=== PATIENT | male | born 1955 | race Caucasian/White ===

== ENCOUNTER 2019-07-09 07:38 | Outpatient (CLI) | payer MEDICARE, SELFPAY ==
[2019-07-09 07:54] LABS: Basophils Percent Auto 0.4 % (0.2-1.2); Eosinophils Absolute Auto 0.3 K/mm3 (0-0.3); Eosinophils Percent Auto 3.5 % (0-4.4); Hematocrit 47.5 % (42.0-52.0); Hemoglobin 15.5 g/dL (14.0-18.0); Immature Granulocyte Absolute 0.03 K/mm3 (0.00-0.031); Immature Granulocyte Percent A 0.4 % (0-0.5); Lymphocytes Absolute Auto 2.33 K/mm3 (0.9-3.2); Lymphocytes Percent Auto 27.9 % (18.3-44.2); Mean Corpuscular HGB Conc 32.6 g/dl (32-36); Mean Corpuscular Hemoglobin 28.4 pg (26-34); Mean Corpuscular Volume 87.2 fl (80-100); Mean Platelet Volume 9.7 fl (7.4-10.4); Monocytes Absolute Auto 0.7 K/mm3 (0.1-0.6); Neutrophils Percent Auto 59.8 % (45.5-73.1); Platelet Count Result 165 k/mm3 (150-375); Red Blood Count 5.45 M/mm3 (4.6-6.20); Red Cell Distribution Width 14.4 % (11.5-14.5); White Blood Count 8.4 K/mm3 (4.5-10.0)
[2019-07-09 08:03] LABS: Hemoglobin A1C 8.4 % (<5.7)
[2019-07-09 08:10] LABS: Alanine Aminotransferase 19 U/L (4-50); Albumin Level 3.9 g/dL (3.5-5.1); Alkaline Phosphatase 94 U/L (38-126); Aspartate Amino Transferase 24 U/L (17-59); Bilirubin,Total 0.6 mg/dL (0.2-1.3); Blood Urea Nitrogen 21 mg/dL (9-20); Calcium 8.3 mg/dL (8.4-10.2); Carbon Dioxide 27 mmol/L (22-30); Chloride 103 mmol/L (98-107); Cholesterol 136 mg/dL (0-200); Estimated Glomerular Filt Rate > 60; Glucose 159 mg/dL (75-110); Potassium 4.2 mmol/L (3.4-5.0); Sodium 137 mmol/L (137-145)
[2019-07-09 08:23] LABS: Creatinine Urine 54.7 mg/dL
[2019-07-09 08:24] LABS: Triglycerides 916 mg/dL (<150)
[2019-07-09 08:36] LABS: Prostate Specific Antigen 0.2 ng/mL (< OR = 4.0)
[2019-07-09 08:51] LABS: LDL Cholesterol Direct < 30 mg/dL
[2019-07-09 09:14] LABS: Microalbumin Urine Random 650.4 mg/L (0-16.7)
== END 2019-07-09 07:39 | disposition home or self-care (01) ==
LOC: ANHLAB 07:39
PROVIDERS: PCP Family Medicine; Visit Provider Family Medicine
DX: E78.2 Mixed hyperlipidemia (principal); I10 Essential (primary) hypertension; E11.9 Type 2 diabetes mellitus without complications; Z12.5 Encounter for screening for malignant neoplasm of prostate
CPT/HCPCS: 36415; 80048; 80061; 80076; 82043; 83036; 84153; 84443; 85025; G0103

== ENCOUNTER 2019-12-14 07:46 | Outpatient (CLI) | payer MEDICARE, SELFPAY ==
[2019-12-14 08:13] LABS: Basophils Absolute Auto 0.1 K/mm3 (0.0-0.1); Basophils Percent Auto 0.6 % (0.2-1.2); Eosinophils Absolute Auto 0.3 K/mm3 (0-0.3); Hematocrit 49.1 % (42.0-52.0); Immature Granulocyte Absolute 0.05 K/mm3 (0.00-0.031); Immature Granulocyte Percent A 0.5 % (0-0.5); Lymphocytes Absolute Auto 2.37 K/mm3 (0.9-3.2); Lymphocytes Percent Auto 23.3 % (18.3-44.2); Mean Corpuscular HGB Conc 34.6 g/dl (32-36); Mean Corpuscular Hemoglobin 29.9 pg (26-34); Mean Corpuscular Volume 86.4 fl (80-100); Mean Platelet Volume 10.1 fl (7.4-10.4); Monocytes Absolute Auto 0.7 K/mm3 (0.1-0.6); Neutrophils Absolute Auto 6.7 K/mm3 (1.3-6.7); Neutrophils Percent Auto 65.6 % (45.5-73.1); Platelet Count Result 184 k/mm3 (150-375); Red Blood Count 5.68 M/mm3 (4.6-6.20); Red Cell Distribution Width 13.4 % (11.5-14.5); White Blood Count 10.2 K/mm3 (4.5-10.0)
[2019-12-14 08:24] LABS: Hemoglobin A1C 8.3 % (<5.7)
[2019-12-14 08:47] LABS: Creatinine Urine 27.7 mg/dL
[2019-12-14 08:48] LABS: Alanine Aminotransferase 29 U/L (4-50); Alkaline Phosphatase 178 U/L (38-126); Anion Gap 8 mmol/L (8-16); Aspartate Amino Transferase 22 U/L (17-59); Bilirubin,Total 0.6 mg/dL (0.2-1.3); Blood Urea Nitrogen 22 mg/dL (9-20); Carbon Dioxide 31 mmol/L (22-30); Chloride 100 mmol/L (98-107); Cholesterol 194 mg/dL (0-200); Estimated Glomerular Filt Rate > 60; Glucose 298 mg/dL (75-110); Potassium 4.2 mmol/L (3.4-5.0); Sodium 139 mmol/L (137-145)
[2019-12-14 09:05] LABS: MALB Creatinine Ratio 1492.8 mg/g (0-30); Microalbumin Urine Random 413.5 mg/L (0-16.7)
[2019-12-14 11:20] LABS: Prostate Specific Antigen 0.4 ng/mL (< OR = 4.0)
[2019-12-14 11:35] LABS: LDL Cholesterol Direct < 30 mg/dL
[2019-12-14 11:44] LABS: Vitamin D 25 Hydroxy < 12.8 ng/mL
[2019-12-14 12:38] LABS: Triglycerides 1791 mg/dL (<150)
== END 2019-12-14 07:47 | disposition home or self-care (01) ==
PROVIDERS: PCP Family Medicine; Visit Provider Family Medicine
DX: E11.9 Type 2 diabetes mellitus without complications (principal); M05.79 Rheumatoid arthritis with rheumatoid factor of multiple sites without organ or systems involvement; G62.9 Polyneuropathy, unspecified; E55.9 Vitamin D deficiency, unspecified; Z12.5 Encounter for screening for malignant neoplasm of prostate; E78.2 Mixed hyperlipidemia
CPT/HCPCS: 36415; 80053; 80061; 82043; 82306; 82607; 83036; 84153; 84443; 85025; G0103

== ENCOUNTER 2020-03-30 07:50 | Outpatient (CLI) | payer MEDICARE, SELFPAY ==
[2020-03-30 08:40] LABS: Cholesterol 134 mg/dL (0-200)
[2020-03-30 08:46] LABS: Triglycerides 830 mg/dL (<150)
[2020-03-30 09:14] LABS: LDL Cholesterol Direct < 30 mg/dL
== END 2020-03-30 07:51 | disposition home or self-care (01) ==
PROVIDERS: PCP Family Medicine; Visit Provider Family Medicine
DX: E78.2 Mixed hyperlipidemia (principal)
CPT/HCPCS: 36415; 80061

== ENCOUNTER 2020-04-17 14:01 | Outpatient (CLI) | payer MEDICARE, SELFPAY ==
--- NOTE | ~2020-04-17 | US_ITS ---
EXAMINATION: US venous doppler [facility] EXAM DATE: 04/17/2020 14:44 INDICATION: Bilateral leg pain. TECHNIQUE: Multiple grayscale, color flow and Doppler images of the lower extremity deep venous syste ms bilaterally were obtained and reviewed. Comparison is made to prior examination from 07/22/2016. FINDINGS: Right side: The right common femoral, femoral and profunda veins demonstrate normal color flow, respi ratory variation, augmentation and compressibility. Compressibility, color flow confirmed within the right popliteal, posterior tibial, peroneal, and greater saphenous veins. Left side: The left common femoral, femoral and profunda veins demonstrate normal color flow, respira tory variation, augmentation and compressibility. Compressibility, color flow confirmed within the l eft popliteal, posterior tibial, peroneal, and greater saphenous veins. IMPRESSION: 1. No lower extremity deep venous thrombosis bilaterally. Reviewed, dictated and finalized at location B. ORDER SORTER
== END 2020-04-17 14:02 | disposition home or self-care (01) ==
LOC: ANHIMG 14:02
PROVIDERS: PCP Family Medicine; Visit Provider Nurse Practitioner Family
DX: M79.604 Pain in right leg (principal); M79.89 Other specified soft tissue disorders; E11.9 Type 2 diabetes mellitus without complications; Z72.0 Tobacco use; Z68.34 Body mass index [BMI] 34.0-34.9, adult
CPT/HCPCS: 93970

== ENCOUNTER 2020-06-21 09:17 | Outpatient (CLI) | payer MEDICARE, SELFPAY ==
[2020-06-21 10:02] LABS: Anion Gap 5 mmol/L (8-16); Blood Urea Nitrogen 18 mg/dL (9-20); Calcium 8.8 mg/dL (8.4-10.2); Carbon Dioxide 32 mmol/L (22-30); Chloride 103 mmol/L (98-107); Estimated Glomerular Filt Rate > 60; Glucose 228 mg/dL (75-110); Potassium 3.6 mmol/L (3.4-5.0); Sodium 140 mmol/L (137-145)
== END 2020-06-21 09:18 | disposition home or self-care (01) ==
PROVIDERS: PCP Family Medicine; Visit Provider Physician Assistant Medical
DX: M79.89 Other specified soft tissue disorders (principal)
CPT/HCPCS: 36415; 80048

== ENCOUNTER 2020-08-03 14:50 | Outpatient (CLI) | payer MEDICARE, SELFPAY ==
--- NOTE | ~2020-08-03 | XR_ITS ---
XR tibia fibula RT 2V DATE: 08/03/2020 15:19 INDICATION: Right lower leg pain. No known injury. TECHNIQUE: AP and lateral views COMPARISON: None FINDINGS: There is mild periarticular spurring of the patellofemoral joint consistent with osteoarthr itis. There is apparent loss of medial joint space height as well. Mild superior pole patellar enthes opathy at quadriceps tendon insertion. No fracture or dislocation, periosteal reaction or bone destruction of the tibia or fibula. Normal al ignment at the knee and ankle joints. Posterior calcaneal enthesopathy. IMPRESSION: Osteoarthritis at the knee joint Posterior calcaneal enthesopathy Reviewed, dictated and finalized at location B.
== END 2020-08-03 14:51 | disposition home or self-care (01) ==
PROVIDERS: PCP Family Medicine; Visit Provider Physician Assistant Medical
DX: M17.11 Unilateral primary osteoarthritis, right knee (principal); M77.31 Calcaneal spur, right foot
CPT/HCPCS: 73590

== ENCOUNTER 2020-08-25 07:47 | Outpatient (CLI) | payer MEDICARE, SELFPAY ==
--- NOTE | ~2020-08-25 | US_ITS ---
EXAMINATION: US art doppler w jaye [facility] EXAM DATE: 08/25/2020 09:01 INDICATION: Bilateral lower extremity peripheral arterial disease. TECHNIQUE: Segmental pressures and plethysmographic and Doppler waveforms of the brachial and lower e xtremity arteries were obtained. There is no prior study for comparison. FINDINGS: Right and left brachial artery pressures of 145 mm Hg and 137 mm Hg, respectively, are concordant (no rmal difference <= 30 mmHg). RIGHT LEG: The ankle-brachial index (JUDY) is 1.19 (normal >= 0.9-1). The great toe-brachial index (TBI) is 0.96 (normal >= 0.65). The lower extremity ratios, segmental pressure gradients as follows; Proximal superficial femoral artery:- Could not obtain ( mmHg). Distal superficial femoral artery: ----- 1.34 (194 mmHg). Popliteal: 1.17 (169 mmHg). Dorsalis pedis: 1.08 (156 mmHg). Posterior tibial: 1.19 (172 mmHg). (Normal gradients <= 20-30 mmHg between adjacent levels on the same leg or the same levels on the two legs). Arterial waveforms are monophasic dorsalis pedis, otherwise biphasic. LEFT LEG: The ankle-brachial index (JUDY) is 1.20 (normal >= 0.9-1). The great toe-brachial index (TBI) is 0.93 (normal >= 0.65). The lower extremity ratios, segmental pressure gradients as follows; Proximal superficial femoral artery:- Could not obtain ( mmHg). Distal superficial femoral artery: ----- 1.24 (180 mmHg). Popliteal: 1.12 (163 mmHg). Dorsalis pedis: 1.03 (149 mmHg). Posterior tibial: 1.20 (174 mmHg). (Normal gradients <= 20-30 mmHg between adjacent levels on the same leg or the same levels on the two legs). Arterial waveforms are monophasic PT, DP, biphasic above. IMPRESSION: 1. Right ankle-brachial index 1.19, normal. 2. Left ankle-brachial index 1.20, normal. 3. Segmental pressures as above. Reviewed, dictated and finalized at location A.
[2020-08-25 11:21] LABS: Prostate Specific Antigen 0.4 ng/mL (< OR = 4.0)
[2020-08-25 11:42] LABS: Creatinine Urine 49.2 mg/dL
[2020-08-25 12:50] LABS: MALB Creatinine Ratio 994.1 mg/g (0-30); Microalbumin Urine Random 489.1 mg/L (0-16.7)
== END 2020-08-25 07:48 | disposition home or self-care (01) ==
PROVIDERS: PCP Family Medicine; Visit Provider Podiatrist Foot & Ankle Surgery
DX: I73.9 Peripheral vascular disease, unspecified (principal); E11.9 Type 2 diabetes mellitus without complications; Z12.5 Encounter for screening for malignant neoplasm of prostate
CPT/HCPCS: 36415; 82043; 84153; 93923; G0103

== ENCOUNTER 2020-11-14 09:11 | Outpatient (CLI) | payer MEDICARE, SELFPAY ==
--- NOTE | 2020-11-14 11:00 | NEURO_ITS ---
Impression: # Known diabetic complains of lower extremity numbness and pain. Has bilateral pitting edema. 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 # Needle/EMG exam not done due to the edema. Nerve Conduction Studies Anti Sensory Summary Table Stim Site NR Peak (ms) P-T Amp (?V) Site1 Site2 Delta-P (ms) Dist (cm) Solo (m/s) Left Sup Fibular Anti Sensory (Ant Lat Mall) 14 cm 4.2 8.3 14 cm Ant Lat Mall 4.2 16.0 38 Right Sup Fibular Anti Sensory (Ant Lat Mall) NO RESPONSE 14 cm NR 14 cm Ant Lat Mall 16.0 Left Sural Anti Sensory (Lat Mall) NO RESPONSE Calf NR Calf Lat Mall 16.0 Right Sural Anti Sensory (Lat Mall) Calf NR Calf Lat Mall 16.0 Motor Summary Table Stim Site NR Onset (ms) O-P Amp (mV) Site1 Site2 Delta-0 (ms) Dist (cm) Solo (m/s) Left Peroneal Motor (Vastus Med) Ankle 4.8 2.0 Popit Ankle 10.4 40.0 38 Popit 15.2 1.2 Right Peroneal Motor (Vastus Med) Ankle 4.4 0.9 Popit Ankle 10.4 40.0 38 Popit 14.8 0.2 Left Tibial Motor (Abd Chisholm Brev) NO RESPONSE Ankle NR Knee NR Right Tibial Motor (Abd Chisholm Brev) NO RESPONSE Ankle NR Knee NR F Wave Studies NR F-Lat (ms) L-R F-Lat (ms) Left Peroneal (Mrkrs) (EDB) 60.04 0.78 Right Peroneal (Mrkrs) (EDB) 60.82 0.78 Left Tibial (Mrkrs) (Abd Hallucis) 61.75 Right Tibial (Mrkrs) (Abd Hallucis) DISPERSED RESPONSE NR MTDD
== END 2020-11-14 09:12 | disposition home or self-care (01) ==
PROVIDERS: PCP Family Medicine; Visit Provider Physician Assistant Medical
DX: M79.669 Pain in unspecified lower leg (principal); G62.89 Other specified polyneuropathies
CPT/HCPCS: 95910

== ENCOUNTER 2022-03-16 08:17 | Outpatient (CLI) | payer MEDICARE, MEDICAID, SELFPAY ==
[2022-03-16 08:46] LABS: Hematocrit 46.5 % (42.0-52.0); Hemoglobin 15.5 g/dL (14.0-18.0); Mean Corpuscular HGB Conc 33.3 g/dl (32-36); Mean Corpuscular Hemoglobin 28.4 pg (26-34); Mean Corpuscular Volume 85.2 fl (80-100); Mean Platelet Volume 9.5 fl (7.4-10.4); Platelet Count Result 172 k/mm3 (150-375); Red Blood Count 5.46 M/mm3 (4.6-6.20); Red Cell Distribution Width 13.9 % (11.5-14.5); White Blood Count 7.1 K/mm3 (4.5-10.0)
[2022-03-16 09:01] LABS: Alanine Aminotransferase 16 U/L (6-50); Albumin Level 3.9 g/dL (3.5-5.1); Alkaline Phosphatase 113 U/L (38-126); Amylase 59 U/L (30-110); Anion Gap 5 mmol/L (8-16); Aspartate Amino Transferase 18 U/L (17-59); Bilirubin,Total 0.9 mg/dL (0.2-1.3); Blood Urea Nitrogen 18 mg/dL (9-20); Calcium 8.7 mg/dL (8.4-10.2); Carbon Dioxide 31 mmol/L (22-30); Chloride 100 mmol/L (98-107); Cholesterol 141 mg/dL (0-200); Estimated Glomerular Filt Rate > 60; Glucose 285 mg/dL (65-110); HDL Direct 23 mg/dL; Potassium 4.2 mmol/L (3.4-5.0); Sodium 136 mmol/L (137-145)
[2022-03-16 09:26] LABS: Prostate Specific Antigen 0.5 ng/mL (< OR = 4.0)
[2022-03-16 09:59] LABS: Creatinine Urine 87.4 mg/dL
[2022-03-16 10:23] LABS: Erythrocyte Sedimentation Rate 16 mm/hr (0-20)
[2022-03-16 10:38] LABS: Hemoglobin A1C 11.1 % (<5.7)
[2022-03-16 10:49] LABS: Microalbumin Urine Random 537.5 mg/L (0-16.7)
[2022-03-16 11:03] LABS: Vitamin D 25 Hydroxy < 12.8 ng/mL
[2022-03-16 11:04] LABS: LDL Cholesterol Direct < 30 mg/dL; Triglycerides 667 mg/dL (<150)
[2022-03-20 12:29] LABS: CRP, High Sensitivity 7.5 mg/L (***)
== END 2022-03-16 08:18 | disposition home or self-care (01) ==
PROVIDERS: PCP Family Medicine; Visit Provider Family Medicine
DX: E55.9 Vitamin D deficiency, unspecified (principal); G57.93 Unspecified mononeuropathy of bilateral lower limbs; K86.1 Other chronic pancreatitis; I10 Essential (primary) hypertension; E78.2 Mixed hyperlipidemia; Z13.220 Encounter for screening for lipoid disorders; E11.65 Type 2 diabetes mellitus with hyperglycemia; Z79.4 Long term (current) use of insulin; M05.79 Rheumatoid arthritis with rheumatoid factor of multiple sites without organ or systems involvement; Z12.5 Encounter for screening for malignant neoplasm of prostate
CPT/HCPCS: 36415; 80048; 80061; 80076; 82043; 82150; 82306; 82607; 83036; 84153; 84443; 85027; 85652; 86141; G0103

== ENCOUNTER 2022-03-23 07:44 | Outpatient (CLI) | payer MEDICARE, MEDICAID, SELFPAY ==
--- NOTE | ~2022-03-23 | XR_ITS ---
XR shoulder RT min 2V 03/23/2022 08:29 Indication: Chronic right shoulder pain Procedure: These right shoulder Comparison: No prior studies for comparison. Findings: There is mild osteoarthritis of the right acromioclavicular joint with small loose bodies s uperior to the joint. There is ossification adjacent to the greater tuberosity,, consistent with calc ific tendinopathy. No fracture or traumatic malalignment. There is anatomical alignment. Impression: 1: Mild right acromioclavicular joint osteoarthritis. Reviewed, dictated and finalized at location A. RIBUTION SYSTEMS SUPERINTENDENT Impression: 1: Mild right acromioclavicular joint osteoarthritis.
--- NOTE | ~2022-03-23 | XR_ITS ---
XR knee RT min 4V 03/23/2022 08:28 Indication: Chronic right knee pain Procedure: 4 views right knee Comparison: 08/19/2016 Findings: There is mild tricompartment osteoarthritis of the right knee. No fracture, subluxation or dislocation. No significant joint effusion. No foreign bodies. Impression: 1: Mild tricompartment osteoarthritis of the right knee. Reviewed, dictated and finalized at location A. RVISOR MAINTENANCE AND CUSTODIANS Impression: 1: Mild tricompartment osteoarthritis of the right knee.
--- NOTE | ~2022-03-23 | XR_ITS ---
[id number] 03/23/2022 08:29 Indication: Right foot pain Procedure: 4 views right foot Comparison: No prior studies for comparison. Findings: There is mild osteoarthritis of the first MTP joint. No fracture, subluxation or dislocatio n. Small osteochondroma originating from the proximal aspect of the second metatarsal. Lisfranc joint intact. Impression: 1: Mild osteoarthritis of the right first MTP joint. Reviewed, dictated and finalized at location A. NO RUNNER Impression: 1: Mild osteoarthritis of the right first MTP joint.
--- NOTE | ~2022-03-23 | XR_ITS ---
XR shoulder LT min 2V 03/23/2022 08:28 Indication: Chronic shoulder pain Procedure: 4 views left shoulder Comparison: No prior studies for comparison. Findings: There is normal anatomic alignment. No fracture, subluxation or dislocation. No significant degenerative change. No soft tissue abnormality. No foreign bodies. Impression: 1: No significant bone or joint abnormality. Reviewed, dictated and finalized at location A. OGY TUTOR Impression: 1: No significant bone or joint abnormality.
--- NOTE | ~2022-03-23 | XR_ITS ---
XR knee LT min 4V 03/23/2022 08:28 Indication: Chronic left knee pain for 15 years Procedure: 4 views left knee Comparison: 08/19/2016 Findings: There is stable mild-moderate tricompartment osteoarthritis most advanced in the medial ling nt space. No fracture or traumatic malalignment. No significant joint effusion. Normal mineralization . No foreign bodies. Impression: 1: Stable mild-moderate osteoarthritis of the left knee. Reviewed, dictated and finalized at location A. OPERATOR Impression: 1: Stable mild-moderate osteoarthritis of the left knee.
--- NOTE | ~2022-03-23 | XR_ITS ---
XR chest 2V 03/23/2022 08:29 Indication: Chronic cough Procedure: 2 view chest Comparison: 12/17/2012 Findings: No focal air space disease, pulmonary edema, pleural effusion or suspected pneumothorax. Th ere is left basilar atelectasis. Heart size normal. No pneumothorax. Impression: 1: Left basilar atelectasis. Reviewed, dictated and finalized at location A. RING MACHINE OPERATOR Impression: 1: Left basilar atelectasis.
--- NOTE | ~2022-03-23 | XR_ITS ---
XR lumbar spine 6V w bending 03/23/2022 08:29 Indication: Low back pain for 15-20 years. Procedure: 7 views lumbar spine Comparison: 01/10/2005 Findings: Normal lumbar alignment. Vertebral body heights are maintained. Small ventral osteophytes a nteriorly at L2-3. Mild facet hypertrophy at L5-S1. There is disc narrowing at L5-S1. No acute fractu re or traumatic malalignment. There is atherosclerosis. Pedicles intact. There are are bilateral tsering l stones. There are prostate calcifications. There are surgical changes of ventral hernia repair. Impression: 1: Stable mild lumbar spondylosis. 2: Bilateral nephrolithiasis. Reviewed, dictated and finalized at location A. E WIRER HELPER Impression: 1: Stable mild lumbar spondylosis. 2: Bilateral nephrolithiasis.
--- NOTE | ~2022-03-23 | XR_ITS ---
[id number] 03/23/2022 08:29 Indication: Chronic left foot pain Procedure: 4 views left foot Comparison: No prior studies for comparison. Findings: There is anatomic alignment. Lisfranc joint intact. No fracture, subluxation or dislocation . Mild osteoarthritis of the first MP joint. No focal soft tissue abnormality. Small calcaneal enthes ophytes. Impression: 1: Mild osteoarthritis of the left first MTP joint. Reviewed, dictated and finalized at location A. WABLE ENERGY BROKER Impression: 1: Mild osteoarthritis of the left first MTP joint.
== END 2022-03-23 07:45 | disposition home or self-care (01) ==
LOC: ANHIMG 07:53
PROVIDERS: PCP Family Medicine; Visit Provider Family Medicine
DX: M25.512 Pain in left shoulder (principal); M05.79 Rheumatoid arthritis with rheumatoid factor of multiple sites without organ or systems involvement; M19.071 Primary osteoarthritis, right ankle and foot; M19.072 Primary osteoarthritis, left ankle and foot; M47.896 Other spondylosis, lumbar region; N20.0 Calculus of kidney; M19.011 Primary osteoarthritis, right shoulder; M17.0 Bilateral primary osteoarthritis of knee; R91.8 Other nonspecific abnormal finding of lung field
CPT/HCPCS: 71046; 72114; 73030; 73564; 73630

== ENCOUNTER 2022-07-27 05:43 | Inpatient (IN) | payer MEDICARE, SELFPAY ==
[2022-07-27] VITALS (25 sets, daily range): BP systolic 118–170; BP diastolic 59–77; PULSE 60–79; RESP 16–21; TEMP 35.7–36.4; O2SAT 94–100
--- NOTE | ~2022-07-27 | MR_ITS ---
EXAMINATION: MR MRCP wo/w con/w 3D wo ind DATE: 07/28/2022 11:22 INDICATION: Pancreatitis. Abdominal pain. TECHNIQUE: Magnetic resonance imaging (MRI) of the abdomen was performed without and with 20 mL Multi Aaron intravenous contrast. Sequences included coronal T2-weighted FS FSE, coronal T2-weighted FSE, a xial T1-weighted LAVA, coronal FS FIESTA, axial dual-echo T1-weighted SPGR, coronal lava-FLEX, sagitt al T2-weighted FSE, axial T2-weighted FSE, and axial DWI. Thick-slab T2-weighted FSE images were obta ined for magnetic resonance cholangiopancreatography (MRCP). Maximum intensity projection 3-D reconst ructions of the volumetric data were created by the technologist. Postcontrast sequences included cor onal LAVA-flex and time course of axial T1-weighted LAVA. COMPARISON: CT abdomen and pelvis 07/27/2022, abdomen ultrasound 07/27/2022 FINDINGS: ABDOMEN MRI: There is mild bilateral gynecomastia. There is diffuse hepatic steatosis. Periportal godfrey ma is noted. The gallbladder is distended and contains a few small gallstones. Gallbladder wall thick ening is noted. The spleen is normal. There is mild edema around the pancreas. The pancreas enhances throughout. The adrenal glands are normal. There are cysts in the kidneys measuring up to 2.9 cm on t he right. There is a 2.2 cm hemorrhagic cyst in right kidney. There is a 1.5 cm hemorrhagic cyst in l eft kidney. There are no dilated loops of bowel. There are no pathologically enlarged lymph nodes. Th ere is no free intraperitoneal fluid. ABDOMEN MRCP: The common duct is mildly dilated 8 mm. IMPRESSION: 1. Acute cholecystitis. 2. Mildly dilated common duct. No choledocholithiasis. 3. Mild findings of acute interstitial pancreatitis. Reviewed, dictated and finalized at location E.
--- NOTE | ~2022-07-27 | CT_ITS ---
EXAMINATION: CT abdomen pelvis w con DATE: 07/27/2022 06:59 INDICATION: Epigastric pain TECHNIQUE: Computed tomography (CT) of the abdomen and pelvis was performed without intravenous contr ast. The dose-length product was 1280.96 mGy-cm. Automated exposure control and iterative reconstruct ion technique were employed. COMPARISON: CT dated 07/24/2017. FINDINGS: Mild emphysema. Dependent atelectasis. Heart size normal. No significant pleural or pericar dial effusion. Gallbladder is enlarged with mild gallbladder wall thickening and biliary dilatation. The spleen, pancreas, adrenal glands are unremarkable. There are nonobstructing bilateral renal stone s. No ureteral stones or significant hydronephrosis. There are bilateral renal cysts. There is an int ermediate density exophytic 1.3 cm left renal mass, slightly larger than on prior study. Correlation with MRI without and with contrast recommended. There are changes of ventral abdominal wall hernia re pair. Nonobstructive bowel pattern. There is moderate atherosclerosis without aneurysm. No lymphadeno josé miguel. There is lower thoracic and lumbar spondylosis. IMPRESSION: 1. Enlarged gallbladder with gallbladder wall thickening and biliary dilatation. No obstructing stone or mass identified. Cannot exclude cholecystitis. 2: Intermediate density left renal mass measuring 1.3 cm. Correlate with MRI abdomen without and with contrast. 3: Nonobstructing bilateral nephrolithiasis. Reviewed, dictated and finalized at location A. IMPRESSION: 1. Enlarged gallbladder with gallbladder wall thickening and biliary dilatation . No obstructing stone or mass identified. Cannot exclude cholecystitis. 2: Intermediate density left renal mass measuring 1.3 cm. Correlate with MRI ab domen without and with contrast. 3: Nonobstructing bilateral nephrolithiasis.
--- NOTE | ~2022-07-27 | XR_ITS ---
EXAMINATION: XR chest 1V portable 07/27/2022 06:26 INDICATION: Midsternal chest pain PROCEDURE: AP portable chest COMPARISON: Comparison to multiple prior studies sequentially, with oldest reviewed study dated 09/29. FINDINGS: The lungs are clear. The cardiomediastinal silhouette is within normal limits. There are no pleural effusions. There is no pneumothorax suspected. IMPRESSION: 1: NO ACUTE CARDIOPULMONARY DISEASE. Reviewed, dictated and finalized at location A.
--- NOTE | ~2022-07-27 | US_ITS ---
US abdomen limited INDICATION: Possible cholecystitis. PROCEDURE: Realtime right upper abdominal ultrasound. COMPARISON: No prior studies for comparison. FINDINGS: The pancreas is normal without focal mass or pancreatic ductal dilation. Liver echotexture is increased, consistent with fatty infiltration. There is normal directional flow in the portal ve in. There is gallbladder wall thickening. No definite gallstones. Common bile duct measures 8 mm. Posit rex sonographic Scott's sign. IMPRESSION: 1: Mild gallbladder wall thickening with positive sonographic Scott's sign and biliary dilatation. N o definite gallstones. Consider acalculous cholecystitis. Reviewed, dictated and finalized at location A. IMPRESSION: 1: Mild gallbladder wall thickening with positive sonographic Scott's sign and biliary dilatation. No definite gallstones. Consider acalculous cholecystitis.
--- NOTE | ~2022-07-27 | XR_ITS ---
EXAMINATION: XR ERCP DATE: 07/29/2022 14:30 INDICATION: Choledocholithiasis. TECHNIQUE: 1 spot fluoroscopic image of the right upper quadrant was obtained during endoscopic retro grade cholangiopancreatography (ERCP). Fluoroscopy exposure time was 65 seconds. COMPARISON: MRCP 07/28/2022 FINDINGS: The endoscope is in the second portion the duodenum. There is a wire in the common duct. IMPRESSION: 1. Endoscope in the second portion of the duodenum. Please refer to the ERCP procedure note for addit ional details. Reviewed, dictated and finalized at location A. IMPRESSION: 1. Endoscope in the second portion of the duodenum. Please refer to the ERCP pr ocedure note for additional details.
--- NOTE | 2022-07-27 05:53 | ECG_ITS ---
Measurements Intervals [place] Rate: 70 P: 51 DC: 157 QRS: -9 QRSD: 102 T: 112 QT: 374 QTc: 405 Interpretive Statements SINUS RHYTHM WITH SINUS ARRHYTHMIA DELAYED PRECORDIAL R/S TRANSITION BORDERLINE ST-T WAVE ABNORMALITY- LAT/HIGH LAT LEADS ABNORMAL ECG NO PREVIOUS ECG AVAILABLE FOR COMPARISON Electronically Signed On 07-27-2022 6:15:30 CDT by Juan Antonio Hutchins D.O.
[2022-07-27 06:03] LABS: Basophils Percent Auto 0.3 % (0.2-1.2); Eosinophils Absolute Auto 0.1 K/mm3 (0-0.3); Eosinophils Percent Auto 0.9 % (0-4.4); Hematocrit 44.3 % (42.0-52.0); Hemoglobin 14.9 g/dL (14.0-18.0); Immature Granulocyte Absolute 0.05 K/mm3 (0.00-0.031); Immature Granulocyte Percent A 0.5 % (0-0.5); Lymphocytes Absolute Auto 0.96 K/mm3 (0.9-3.2); Lymphocytes Percent Auto 9.9 % (18.3-44.2); Mean Corpuscular HGB Conc 33.6 g/dl (32-36); Mean Corpuscular Hemoglobin 28.4 pg (26-34); Mean Corpuscular Volume 84.5 fl (80-100); Mean Platelet Volume 9.7 fl (7.4-10.4); Monocytes Absolute Auto 0.6 K/mm3 (0.1-0.6); Monocytes Percent Auto 6.1 % (2.6-8.5); Neutrophils Percent Auto 82.3 % (45.5-73.1); Platelet Count Result 178 k/mm3 (150-375); Red Blood Count 5.24 M/mm3 (4.6-6.20); White Blood Count 9.7 K/mm3 (4.5-10.0)
[2022-07-27 06:18] LABS: Alanine Aminotransferase 70 U/L (6-50); Albumin Level 3.9 g/dL (3.5-5.1); Alkaline Phosphatase 171 U/L (38-126); Anion Gap 7 mmol/L (8-16); Aspartate Amino Transferase 173 U/L (17-59); Bilirubin,Total 1.7 mg/dL (0.2-1.3); Blood Urea Nitrogen 21 mg/dL (9-20); Calcium 8.8 mg/dL (8.4-10.2); Carbon Dioxide 31 mmol/L (22-30); Chloride 100 mmol/L (98-107); Estimated CRCL calculation 93 ml/min; Estimated Glomerular Filt Rate > 60; Glucose 316 mg/dL (65-110); Lipase 475 U/L (23-300); Potassium 4.1 mmol/L (3.4-5.0); Sodium 138 mmol/L (137-145)
[2022-07-27 06:22] LABS: Partial Thromboplastin Time 29.7 SECONDS (22.3-36.8)
--- NOTE | 2022-07-27 06:23 | ED.GENADULT ---
HPI - General Adult General Chief complaint: Chest Pain <Gurjit Finley MD - Last Filed: 08/06/22 21:05> Stated complaint: chest pain <Gurjit Finley MD - Last Filed: 08/06/22 21:05> Time Seen by Provider: 07/27/22 05:58 <Gurjit Finley MD - Last Filed: 08/06/22 21:05> History of Present Illness HPI narrative: This is a 66-year-old male with history of COPD on 2 L home oxygen, hypertension diabetes presenting to ED with chief complaint of chest pain. the pain started at 2:00 a.m., it woke him from sleep, is an achy pain in the center of his chest that is nonradiating, 8/10 in intensity, constant. He says this feels like when he had pancreatitis in the past. There are no alleviating or exacerbating factors. It was associated with 1 episode of nausea and vomiting. Patient denies shortness of breath, diaphoresis or exertional component. no other complaints. <Gurjit Finley MD - Last Filed: 08/06/22 21:05> Related Data Home medications: Home Medications Medication Instructions Recorded Confirmed acetaminophen 325 mg tablet 650 mg PO Q6H 05/13/22 07/27/22 atorvastatin 80 mg tablet 80 mg PO DAILY 07/27/22 07/27/22 <Gurjit Finley MD - Last Filed: 08/06/22 21:05> Allergies/adverse reactions: Allergies Allergy/AdvReac Type Severity Reaction Status Date / Time No Known Allergies Allergy Verified 07/29/22 13:05 <Gurjit Finley MD - Last Filed: 08/06/22 21:05> [facility] Past Medical History Medical History: Medical History (Updated 07/30/22 @ 11:12 by Denisse Calzada MD) Adult BMI 32.0-32.9 kg/sq m Bilateral foot pain Bilateral knee pain Bilateral shoulder pain BMI 34.0-34.9,adult BMI 35.0-35.9,adult BMI greater than 30 Cough Kandice hypertension Diabetes Diabetic foot Encounter for screening for malignant neoplasm of prostate Essential (primary) hypertension Hypertension Impingement of right shoulder Leg numbness Lumbar back pain Mixed hyperlipidemia Neuropathy Neuropathy involving both lower extremities Rheumatoid arthritis Screen for colon cancer Tobacco abuse Vitamin D deficiency <Gurjit Finley MD - Last Filed: 08/06/22 21:05> Surgical History Surgical History: Surgical History (Updated 07/27/22 @ 15:03 by Gabriella Rodríguez NP) H/O cystoscopy H/O hernia repair History of left knee surgery <Gurjit Finley MD - Last Filed: 08/06/22 21:05> Family History Family History: Family History Father Diabetes mellitus, Onset Age: 60 Family history of coronary artery disease Family history of type 2 diabetes mellitus Grandparent Acute myocardial infarction, Onset Age: 90 Mother Family history of lymphoma Family history of type 2 diabetes mellitus Sibling No problems noted. <Gurjit Finley MD - Last Filed: 08/06/22 21:05> Social History Social History: Social History (Updated 07/27/22 @ 15:09 by Gabriella Rodríguez NP) Social History: the patient continues to smoke a half pack a cigarettes a day. The patient is and has 2 children. 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 The patient is currently on house arrest for the next 4 months and has an ankle bracelet to the left lower extremity. He denies any alcohol marijuana or illicit drugs. Code status full code Smoking packs per day: 0.5 Smoking cigarettes per day: 10.0 Years smoked: 40 Smoking pack-years: 20.00 Smoking status: Current every day smoker Second hand tobacco smoke exposure: No Alcohol intake: never Substance use: never Substance use type: does not use Lack of Transportation: No Lack of Food: Sometimes True Current Housing: I Have Housing Concerned About Future Housing: No Difficulty Paying Gas/Electric Bills: YES Difficulty Paying for Meds: YES Currently Unemployed: No Education: High School Diploma/GE
[2022-07-27] MEDS: SODIUM CHLORIDE 0.9% IV 1,000 ML 999 ML IV CONT (06:27)
[2022-07-27 06:29] LABS: Troponin I < 0.012 ng/mL (0.000-0.034)
[2022-07-27] MEDS: FAMOTIDINE 20 MG/2 ML VIAL IV PUSH (06:29)
[2022-07-27] MEDS: HYDROmorphone HCL INJ (*CRX) 1 MG/ML SYR 0.5 MG IV PUSH ×6 (06:29→23:46)
--- NOTE | 2022-07-27 06:48 | PC.NURSE ---
Patient taken to CT via stretcher at this time.
[2022-07-27 07:01] LABS: NT Pro B Type Natriuretic Pept 55 pg/mL (19.9-100)
[2022-07-27 09:29] LABS: Troponin I < 0.012 ng/mL (0.000-0.034)
[2022-07-27] MEDS: PIPERACILLN/TAZ 3.375GM/NS50ML 3.375 GM/50 ML BAG IVPB ×3 (09:40→21:44)
--- NOTE | 2022-07-27 10:07 | WPDGICN ---
Assessment and Plan Assessment and plan (1) Abdominal pain: Code(s): R10.9 - Unspecified abdominal pain Status: Acute Assessment and Plan: this pain came on acutely, waking him up from sleep. Based on the laboratory studies and imaging, it appears that he has acute gallstone pancreatitis. He denies drinking alcohol any time in the recent past. There has been no new change in medications. (2) Acute pancreatitis: Code(s): K85.90 - Acute pancreatitis without necrosis or infection, unspecified Status: Acute Assessment and Plan: He woke at 2:00 a.m. with acute abdominal pain that reminded him of previous episodes of pancreatitis. He has had pancreatitis at least twice in the past, And states that he was hospitalized here about five or 6 years ago. The pain is better now that he has been given morphine for pain. He had been nauseated but did not vomit. His liver function studies are somewhat elevated with bilirubin of 1.7, alkaline phosphatase 170, and AST 173. He has had at least 2 other episodes of pancreatitis going back to at least 2016. He denies drinking alcohol although imaging from 6 years ago did show some scarring, but not calcification of the pancreas. (3) Chronic pancreatitis: Qualifiers: Pancreatitis type: unspecified pancreatitis type Qualified Code(s): K86.1 - Other chronic pancreatitis Code(s): K86.1 - Other chronic pancreatitis Status: Acute Assessment and Plan: Previous imaging study showed scarring of the pancreas indicative of chronic pancreatitis. 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 (4) Splenic vein thrombosis: Code(s): I82.890 - Acute embolism and thrombosis of other specified veins Status: Acute Assessment and Plan: He has been told that the circulation defect caused by the splenic vein thrombosis was responsible for his pancreatitis. To his knowledge she has never had stones and imaging studies that I can find from 6-8 years ago did not show evidence of coli lithiasis (5) Diabetes: Qualifiers: Diabetes mellitus type: type 2 Diabetes mellitus buttermaker continuous churn insulin use: with buttermaker continuous churn use Diabetes mellitus complication status: with hyperglycemia Qualified Code(s): E11.65 - Type 2 diabetes mellitus with hyperglycemia; Z79.4 - salvage determiner (current) use of insulin Code(s): E11.9 - Type 2 diabetes mellitus without complications Status: Acute Assessment and Plan: he is insulin-dependent diabetic. He has had complications including circulatory problems in his legs. Plan He will be admitted and started an at least ice chips and water, possible clear liquid diet while we observe his course. I will obtain MRCP to help rule out choledocholithiasis. depending on results, he may need ERCP to remove common bile duct stones. I discussed this procedure with him. GI Consult Note Consult date/time: 07/27/22 10:07 HPI: Jas Ibanez is a 66 year old male Who woke at 2:00 a.m. this morning with severe epigastric pain. The pain did not radiate. He recognized this as similar to that which she has had a past with pancreatitis. He has had pancreatitis at least twice in the past hospitalized here about five or 6 years ago. The pain is better now that he has been given morphine for pain. He had been nauseated but did not vomit. His liver function studies are somewhat elevated with bilirubin of 1.7, alkaline phosphatase 170, and AST 173. Imaging studies show that he has distended gallbladder with stones. Ultrasound shows an 8 mm common bile duct. He states that when he had pancreatitis in the past that there was no known source for it. He is fairly certain that alcohol was not a factor in states he does not drink alcohol. He also did not think he has ever been found have gallstones in the past. He does recall being told that he has a pro
[2022-07-27] MEDS: SODIUM CHLORIDE 0.9% IV 1,000 ML 75 ML IV CONT ×2 (10:37→21:45)
--- NOTE | 2022-07-27 10:52 | PM.CNGS ---
Assessment and Plan Assessment and plan (1) Acalculous cholecystitis: Code(s): K81.9 - Cholecystitis, unspecified Status: Acute Assessment and Plan: imaging suggestive of acalculous cholecystitis, agree c MRCP for further assessment of biliary tree, will likely need interval cholecystectomy (2) Acute pancreatitis: Code(s): K85.90 - Acute pancreatitis without necrosis or infection, unspecified Status: Acute Assessment and Plan: unknown etiology, agree c MRCP, mgmt per GI (3) Diabetes: Qualifiers: Diabetes mellitus type: type 2 Diabetes mellitus [facility] insulin use: with [facility] use Diabetes mellitus complication status: with hyperglycemia Qualified Code(s): E11.65 - Type 2 diabetes mellitus with hyperglycemia; Z79.4 - [facility] (current) use of insulin Code(s): E11.9 - Type 2 diabetes mellitus without complications Status: Acute Assessment and Plan: cont insulin, med mgmt (4) Tobacco abuse: Code(s): Z72.0 - Tobacco use Status: Acute Assessment and Plan: not interested in cessation at this time History of Present Illness Consult details Consult date: 07/27/22 Reason for consult: abdominal pain Requesting physician: Gurjit Finley MD Narrative: The patient is a 66-year-old male presenting to the emergency department complaining of severe epigastric abdominal pain with radiation into his back. The patient reports the pain started acutely this morning waking him from sleep. The patient reports that pain is sharp, stabbing, constant. The patient reports associated nausea and bloating. The patient reports he has had previous episodes that were very similar and has been hospitalized for pancreatitis in the past. The patient reports that the etiology of his pancreatitis is unknown. Review of Systems Constitutional: Constitutional: Reports as per HPI, Reports anorexia, Denies chills, Denies fatigue, Denies fever(s), Denies increased appetite, Denies lethargy, Reports malaise, Reports poor appetite, Denies weakness, Denies weight gain and Denies weight loss Eyes: Eyes: Reports no additional eye complaints ENT: Reports system reviewed and no additional complaints, except as documented Cardiovascular: Cardiovascular: Reports no additional cardiovascular complaints Respiratory: Respiratory: Reports no additional respiratory complaints Gastrointestinal: Gastrointestinal: Reports as per HPI, Reports abdominal pain, Reports bloating, Denies change in bowel habits, Reports GI cramping, Reports early satiety, Reports heartburn, Reports nausea and Denies vomiting Genitourinary: Genitourinary: Reports no additional male genitourinary complaints Musculoskeletal: Musculoskeletal: Reports no additional musculoskeletal complaints Integumentary/Breasts: Skin/Breast: Reports system reviewed and no additional complaints, except as docu Neurologic: Reports system reviewed and no additional complaints, except as documented Psychiatric: Psychiatric: Reports no additional psychiatric complaints Endocrine: Endocrine: Reports no additional endocrine complaints Hematologic/Lymphatic: Hematologic/Lymphatic: Reports no additional hematologic/lymphatic complaints Allergic/Immunologic: Allergic/Immunologic: Reports no additional allergic/immunologic complaints [facility] Past Medical History Medical History Adult BMI 32.0-32.9 kg/sq m Bilateral foot pain Bilateral knee pain Bilateral shoulder pain BMI 34.0-34.9,adult BMI 35.0-35.9,adult BMI greater than 30 Cough Kandice hypertension Diabetes Diabetic foot Encounter for screening for malignant neoplasm of prostate Essential (primary) hypertension Hypertension Impingement of right shoulder Leg numbness Lumbar back pain Mixed hyperlipidemia Neuropathy Neuropathy involving both lower extremities Rheumatoid arthritis Screen for colon cancer Tobacco abuse
[2022-07-27 12:11] LABS: Glucose Point of Care 263 mg/dl (65-105)
--- NOTE | 2022-07-27 12:13 | PC.NURSE ---
This patient, Jas Ibanez, was admitted to [facility] Surg Room 314-01. Patient/family oriented to hospital policies and general routines including ID bracelet, bed and alarms, visiting hours, pain management, procedures, bathroom and other care routines, personal items, smoking policy, room service/diet, and visiting hours. Information on how to activate the Rapid Response Team has been discussed. Patient/Family are encouraged to report perceived risks to care and to ask questions if they do not understand what they are told or what they should do.
[2022-07-27 12:29] LABS: Troponin I < 0.012 ng/mL (0.000-0.034)
--- NOTE | 2022-07-27 12:54 | PM.IMHP ---
H&P: HPI History of Present Illness Date/Time: 07/27/22 12:54 Chief Complaint: Chest pain Narrative: this 66-year-old male patient with a history of COPD and is chronically on oxygen at 2 L per nasal cannula. He has a history of hypertension and diabetes. Patient stated that he woke up around 2:00 a.m. from his sleep with complaints of chest pain that was centralized. Nonradiating 8/10 intensity and was constant. Did not radiate to his neck are arm. Patient had an episode of nausea and vomiting. He denied any fever chills. He denied any shortness of breath diaphoresis or any exertional dyspnea. No increased swelling to his lower extremities. His blood sugar was noted to be 263. Total bilirubin 1.7. AST 173. ALT 70 alkaline phosphatase . Troponin nonreactive x3. Lipase 475. The patient was given aspirin, Dilaudid, Pepcid, IV fluids, and Zosyn. Chest x-ray was read as no acute cardiopulmonary disease. Abdominal pelvis CT was read as a following Enlarged gallbladder with gallbladder wall thickening and biliary dilatation. No obstructing stone or mass identified. Cannot exclude cholecystitis. 2: Intermediate density left renal mass measuring 1.3 cm. Correlate with MRI abdomen without and with contrast. 3: Nonobstructing bilateral nephrolithiasis. abdominal ultrasound was read as the following: Mild gallbladder wall thickening with positive sonographic Scott's sign and biliary dilatation. No definite gallstones. Consider acalculous cholecystitis. the patient is being admitted to observation status on the date of service of 07/27/2022. Review of Systems Review of Systems: All systems reviewed & are unremarkable except as noted in HPI and below Constitutional: Constitutional: Reports as per HPI and Reports no additional constitutional complaints Eyes: Eyes: Reports as per HPI and Reports no additional eye complaints ENT: Reports system reviewed and no additional complaints, except as documented and Reports Normal hearing present Cardiovascular: Cardiovascular: Reports no additional cardiovascular complaints Respiratory: Respiratory: Reports no additional respiratory complaints and Reports no additional respiratory complaints Gastrointestinal: Gastrointestinal: Reports as per HPI and Reports no additional gastrointestinal complaints Musculoskeletal: Musculoskeletal: Reports no additional musculoskeletal complaints Integumentary/Breasts: Skin/Breast: Reports system reviewed and no additional complaints, except as docu and Reports as per HPI Neurologic: Reports system reviewed and no additional complaints, except as documented, Reports as per HPI and Reports Normal hearing present Psychiatric: Psychiatric: Reports no additional psychiatric complaints and Reports as per HPI Endocrine: Endocrine: Reports no additional endocrine complaints Hematologic/Lymphatic: Hematologic/Lymphatic: Reports no additional hematologic/lymphatic complaints Allergic/Immunologic: Allergic/Immunologic: Reports no additional allergic/immunologic complaints [facility] Past Medical History Medical History Adult BMI 32.0-32.9 kg/sq m Bilateral foot pain Bilateral knee pain Bilateral shoulder pain BMI 34.0-34.9,adult BMI 35.0-35.9,adult BMI greater than 30 Cough Kandice hypertension Diabetes Diabetic foot Encounter for screening for malignant neoplasm of prostate Essential (primary) hypertension Hypertension Impingement of right shoulder Leg numbness Lumbar back pain Mixed hyperlipidemia Neuropathy Neuropathy involving both lower extremities Rheumatoid arthritis Screen for colon cancer Tobacco abuse Vitamin D deficiency Surgical History Surgical History (Updated 07/27/22 @ 15:03 by Gabriella Rodríguez NP) H/O cystoscopy H/O hernia repair History of left knee surgery Family History Family History Father Diabetes mellitus, Onset A
[2022-07-27] MEDS: GABAPENTIN 300 MG CAPSULE PO (16:49)
[2022-07-27 17:05] LABS: Glucose Point of Care 206 mg/dl (65-105)
[2022-07-27 18:23] LABS: Glucose Point of Care 187 mg/dl (65-105)
[2022-07-28 00:59] LABS: Glucose Point of Care 240 mg/dl (65-105)
[2022-07-28] MEDS: INSULIN ASPART (*BKC) 100 UNITS/ML SUB-Q ×4 (01:01→17:58)
[2022-07-28] MEDS: PIPERACILLN/TAZ 3.375GM/NS50ML 3.375 GM/50 ML BAG IVPB ×4 (03:50→21:08)
[2022-07-28] MEDS: HYDROmorphone HCL INJ (*CRX) 1 MG/ML SYR IV PUSH ×5 (03:51→22:40)
[2022-07-28 06:00] VITALS: BP 135/61; PULSE 62; RESP 20; TEMP 36.6; O2SAT 93
[2022-07-28 06:17] LABS: Glucose Point of Care 258 mg/dl (65-105)
[2022-07-28 06:56] LABS: Basophils Percent Auto 0.4 % (0.2-1.2); Eosinophils Absolute Auto 0.2 K/mm3 (0-0.3); Eosinophils Percent Auto 2.2 % (0-4.4); Hematocrit 40.8 % (42.0-52.0); Hemoglobin 13.6 g/dL (14.0-18.0); Immature Granulocyte Absolute 0.01 K/mm3 (0.00-0.031); Immature Granulocyte Percent A 0.1 % (0-0.5); Immature Platelet Fraction Pct 4.3 % (0.9-11.2); Lymphocytes Absolute Auto 1.04 K/mm3 (0.9-3.2); Lymphocytes Percent Auto 13.6 % (18.3-44.2); Mean Corpuscular HGB Conc 33.3 g/dl (32-36); Mean Corpuscular Volume 84.1 fl (80-100); Mean Platelet Volume 9.9 fl (7.4-10.4); Monocytes Absolute Auto 0.6 K/mm3 (0.1-0.6); Neutrophils Absolute Auto 5.8 K/mm3 (1.3-6.7); Neutrophils Percent Auto 75.7 % (45.5-73.1); Platelet Count Result 148 k/mm3 (150-375); Red Blood Count 4.85 M/mm3 (4.6-6.20); Red Cell Distribution Width 13.6 % (11.5-14.5); White Blood Count 7.7 K/mm3 (4.5-10.0)
[2022-07-28 07:00] LABS: Lactic Acid Reflex 1.1 mmol/L (0.7-2.0)
[2022-07-28 07:09] LABS: Alanine Aminotransferase 291 U/L (6-50); Albumin Level 3.4 g/dL (3.5-5.1); Alkaline Phosphatase 237 U/L (38-126); Anion Gap 6 mmol/L (8-16); Aspartate Amino Transferase 289 U/L (17-59); Bilirubin,Total 4.6 mg/dL (0.2-1.3); Blood Urea Nitrogen 13 mg/dL (9-20); Calcium 7.8 mg/dL (8.4-10.2); Carbon Dioxide 26 mmol/L (22-30); Chloride 101 mmol/L (98-107); Estimated CRCL calculation 106 ml/min; Estimated Glomerular Filt Rate > 60; Glucose 245 mg/dL (65-110); Lipase 111 U/L (23-300); Magnesium 1.3 mg/dL (1.6-2.3); Potassium 3.7 mmol/L (3.4-5.0); Sodium 133 mmol/L (137-145)
--- NOTE | 2022-07-28 07:53 | PC.NURSE ---
Patient stated that he spoke with his surface to air weapons officer and they stated that we can cut off ankle bracelet for MRI. This RN educated patient that removal of bracelet will be have to be performed from someone within the parole division or [facility] and not someone within our facility. This RN called [facility] r/t ankle bracelet noted and patient requiring an MRI. [facility] noted that are notifying the correct department and someone would be in touch about scheduling a time for someone to come and remove bracelet for test and replace after test is finished.
[2022-07-28 08:00] VITALS: O2SAT 93
--- NOTE | 2022-07-28 08:42 | WPDGIPROGNO ---
Progress Note: A&P Assessment and Plan (1) Abdominal pain: Code(s): R10.9 - Unspecified abdominal pain Status: Acute Assessment and Plan: this pain came on acutely, waking him up from sleep. Based on the laboratory studies and imaging, it appears that he has acute gallstone pancreatitis. He denies drinking alcohol any time in the recent past. There has been no new change in medications. (2) Acute pancreatitis: Code(s): K85.90 - Acute pancreatitis without necrosis or infection, unspecified Status: Acute Assessment and Plan: He woke at 2:00 a.m. with acute abdominal pain that reminded him of previous episodes of pancreatitis. He has had pancreatitis at least twice in the past, And states that he was hospitalized here about five or 6 years ago. The pain is better now that he has been given morphine for pain. He had been nauseated but did not vomit. His liver function studies are somewhat elevated with bilirubin of 1.7, alkaline phosphatase 170, and AST 173. He has had at least 2 other episodes of pancreatitis going back to at least 2016. He denies drinking alcohol although imaging from 6 years ago did show some scarring, but not calcification of the pancreas. 07/28/2022 today he is having more pain. Also his bilirubin has jumped to over 4. Although lipase has decreased, I am concerned about biliary sludge. I think we will hold off on MR CP and simply proceed to ERCP if it can be done with the mass in the head of the pancreas (3) Chronic pancreatitis: Qualifiers: Pancreatitis type: unspecified pancreatitis type Qualified Code(s): K86.1 - Other chronic pancreatitis Code(s): K86.1 - Other chronic pancreatitis Status: Acute Assessment and Plan: Previous imaging study showed scarring of the pancreas indicative of chronic pancreatitis. 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 (4) Splenic vein thrombosis: Code(s): I82.890 - Acute embolism and thrombosis of other specified veins Status: Acute Assessment and Plan: He has been told that the circulation defect caused by the splenic vein thrombosis was responsible for his pancreatitis. To his knowledge she has never had stones and imaging studies that I can find from 6-8 years ago did not show evidence of coli lithiasis (5) Diabetes: Qualifiers: Diabetes mellitus type: type 2 Diabetes mellitus extermination inspector insulin use: with longterm use Diabetes mellitus complication status: with hyperglycemia Qualified Code(s): E11.65 - Type 2 diabetes mellitus with hyperglycemia; Z79.4 - technician terminal and repeater (current) use of insulin Code(s): E11.9 - Type 2 diabetes mellitus without complications Status: Acute Assessment and Plan: he is insulin-dependent diabetic. He has had complications including circulatory problems in his legs. (6) Pain in the pharynx: Code(s): J39.2 - Other diseases of pharynx Status: Acute Assessment and Plan: he states that the during the night he developed a sore throat which is quite severe at the present time. Plan He will be admitted and started an at least ice chips and water, possible clear liquid diet while we observe his course. I will obtain MRCP to help rule out choledocholithiasis. depending on results, he may need ERCP to remove common bile duct stones. I discussed this procedure with him. Subjective Date/time seen: 07/28/22 08:42 Today he states that his pain is worse. He is also having a severe sore throat which came on during the night. No vomiting. He did tolerate clear liquids. I told that I have reviewed his medical records that we have on file here and also those from [facility]. It does not appear that he has had an MRCP. This might help clarify his situation. Unfortunately, I forgot that he wears an ankle bracelet. He told me that his paro
[2022-07-28 08:44] LABS: Hemoglobin A1C 9.7 % (<5.7)
[2022-07-28] MEDS: lisinopriL 20 MG TABLET PO (08:55)
[2022-07-28] MEDS: GABAPENTIN 300 MG CAPSULE PO ×3 (08:55→16:55)
[2022-07-28] MEDS: MAGNESIUM SULF 4 GM/WATER100ML 4 GM/100 ML BAG IVPB (09:03)
--- NOTE | 2022-07-28 10:20 | PC.NURSE ---
Florin Herr with [facility] at hospital to cut ankle bracelet prior to MRCP. Confirmed with [facility]. Per Elis with [facility], the Commander is aware that ankle bracelet will be cut for testing. Patient to maintain bracelet with persons until it is replaced. Florin, with [facility], will wait until after testing to replace bracelet. Patient updated and made aware.
--- NOTE | 2022-07-28 10:57 | PM.PNGS ---
Progress Note: A&P Assessment and Plan (1) Acalculous cholecystitis: Code(s): K81.9 - Cholecystitis, unspecified Status: Acute Assessment and Plan: exam improved, clears today, plan for ERCP tomorrow, cont abx for now (2) Acute pancreatitis: Qualifiers: Pancreatitis type: biliary Acute pancreatitis complication: unspecified Qualified Code(s): K85.10 - Biliary acute pancreatitis without necrosis or infection Code(s): K85.90 - Acute pancreatitis without necrosis or infection, unspecified Status: Acute Assessment and Plan: ERCP tomorrow Subjective Subjective Date/Time Seen: 07/28/22 10:57 Interval history: still c/o upper abd pain, bloating, no N/V, robert clears Review of Systems Review of Systems: All systems reviewed & are unremarkable except as noted in HPI and below Exam Const: General: cooperative, comfortable and no acute distress Resp: Auscultation: clear to auscultation bilaterally Cardio: Rate: regular rate Rhythm: regular rhythm GI: Inspection: normal to inspection GI Palp: Yes abdominal tenderness, Yes Soft to palpation, Yes Tenderness to palpation present (GI), No Guarding due to palpation present (GI) and No Rigid due to palpation Objective Data Vital Signs Vital Signs: Vital Signs - 24 hr 07/27/22 11:29 07/27/22 14:00 07/27/22 11:54 Temperature 35.7 C L Pulse Rate 63 60 Respiratory Rate 16 18 Blood Pressure 147/68 H 118/59 L Pulse Oximetry 98 100 100 Oxygen Delivery Nasal Cannula Oxygen Flow Rate 3 07/27/22 20:00 07/27/22 21:22 07/28/22 06:00 Temperature 36.4 C 36.6 C Pulse Rate 60 72 62 Respiratory Rate 18 20 20 Blood Pressure 170/75 H 135/61 Pulse Oximetry 100 99 93 Oxygen Delivery Nasal Cannula Oxygen Flow Rate 3 Intake/Output Intake/Output: Intake & Output 07/25/22 07/26/22 07/27/22 07/28/22 23:59 23:59 23:59 23:59 Intake Total 2390 175 Output Total 400 1200 Balance 1989 Meds/Results Medications: Active Medications Generic Name Dose Route Start Last Admin Trade Name Freq PRN Reason Stop Dose Admin Albuterol 2 puff 07/27/22 15:45 Albuterol Sulfate (*Sp) Aerosol 1 Puff INHALATION Q6HRT PRN Shortness Of Breath Dextrose 12.5 gm 07/27/22 15:04 Dextrose 50% 25 Gm/50 Ml Syringe IV PUSH PRN PRN Hypoglycemia Protocol Gabapentin 300 mg 07/27/22 17:00 07/28/22 08:55 Gabapentin 300 Mg Capsule PO 300 mg TID AMBER Administration Glucagon 1 mg 07/27/22 15:04 Glucagon For Inj 1 Mg Vial IM PRN PRN Hypoglycemia Protocol Glucose 15 gm 07/27/22 15:04 Glucose Oral Gel 15 Gm Of Glucse In 37.5 Gm Tube PO PRN PRN Hypoglycemia Protocol Hydralazine HCl 10 mg 07/27/22 15:05 Hydralazine Hcl 20 Mg/Ml Vial IV PUSH Q8H PRN Blood Pressure - High Hydromorphone HCl 1 mg 07/28/22 00:54 07/28/22 08:50 Hydromorphone Hcl Inj (*Crx) 1 Mg/Ml Syr IV PUSH 1 mg Q4H PRN Administration Pain Rated 7-10 Sodium Chloride 1,000 mls @ 75 mls/hr 07/27/22 09:25 07/27/22 21:45 Normal Saline Iv IV CONT 75 mls/hr .[id number] AMBER Administration Dextrose 1,000 mls @ 100 mls/hr 07/27/22 15:04 Dextrose 5% 1,000 Ml IVPB PRN PRN Hypoglycemia Protocol Piperacillin/Tazobactam/Dextrose 3.375 gm in 50 mls @ 100 mls/hr 07/27/22 16:00 07/28/22 10:08 Zosyn 3.375 Gm/Ns 50 Ml IVPB 100 mls/hr Q6H AMBER Administration Insulin Aspart 2 - 5 units 07/27/22 18:00 07/28/22 06:16 Insulin Aspart (*Bkc) 100 Units/Ml SUB-Q 3 units Q6HR AMBER Administration Protocol Lisinopril 20 mg 07/28/22 09:00 07/28/22 08:55 Lisinopril 20 Mg Tablet PO 20 mg QAM AMBER Administration Nicotine 1 patch 07/27/22 15:15 07/28/22 08:57 Nicotine (*Pbkc) 14 Mg Patch TRANSDERM Not Given QAM AMBER Ondansetron HCl 4 mg 07/27/22 09:24 Ondansetron Inj 4 Mg/2 Ml Vial IV PUSH
--- NOTE | 2022-07-28 11:30 | P.PNIM_ITS ---
Progress Note: A&P Assessment and Plan (1) Acalculous cholecystitis: Code(s): K81.9 - Cholecystitis, unspecified Status: Acute Assessment and Plan: * CT of the abd/pel showed acalculous cholecystitis * MRCP pending read * Ultrasound of the RUQ showed acute cholecystitis * Clear liquids for now * AST/ALT elevated at 289/291 Alk Phos 237, T bili 4.6 * Continue IV fluids for now * General surgery and GI consulted * ERCP in the am (2) Acute pancreatitis: Qualifiers: Acute pancreatitis complication: unspecified Pancreatitis type: biliary Qualified Code(s): K85.10 - Biliary acute pancreatitis without necrosis or infection Code(s): K85.90 - Acute pancreatitis without necrosis or infection, unspecified Status: Acute Assessment and Plan: * Lipase was 475, currently at 111 * Clear liquids added * Continue fluids for now * Trend lipase * Pain medication (3) Diabetes: Qualifiers: Diabetes mellitus complication status: with hyperglycemia Diabetes mellitus parts counterman insulin use: with jail use Diabetes mellitus type: type 2 Qualified Code(s): E11.65 - Type 2 diabetes mellitus with hyperglycemia; Z79.4 - termite control representative (current) use of insulin Code(s): E11.9 - Type 2 diabetes mellitus without complications Status: Acute Assessment and Plan: * Current 245 * Accu-Cheks every 6 hours * sliding scale insulin * hypoglycemic protocol * A1c 9.7 * Hold metformin (4) Tobacco abuse: Code(s): Z72.0 - Tobacco use Status: Acute Assessment and Plan: * Current everyday smoker * Add patch and gum PRN * Smoking cessation education given (5) Neuropathy: Code(s): G62.9 - Polyneuropathy, unspecified Status: Acute Assessment and Plan: * Gabapentin 300mg PO TID on hold * NPO for now * restart when appropriate (6) Mixed hyperlipidemia: Code(s): E78.2 - Mixed hyperlipidemia Status: Acute Assessment and Plan: * Atorvastatin continued at this time (7) Essential (primary) hypertension: Code(s): I10 - Essential (primary) hypertension Status: Acute Assessment and Plan: * P.r.n. hydralazine. * Continue lisinopril * BP is 135/61 * Stable * continue to trend Time Spent With Patient Time: 48 minutes Time with patient: Greater than 35 minutes Subjective Date/time seen: 07/28/22 1130 Interval history: 07/28/221129 Patient was sitting up in bed eating his lunch. Patient states that he is feeling okay right now. He is still having some epigastric pain which is the same pain he came in for. He denies any current chest pain, shortness a breath, nausea, vomiting, diarrhea constipation. He is able to tolerate his food. ERCP planned for tomorrow. 07/27/22? 12:54 ?this 66-year-old male patient with a history of COPD and is chronically on oxygen at 2 L per nasal cannula.? He has a history of hypertension and diabetes.? Patient stated that he woke up around 2:00 a.m. from his sleep with complaints of chest pain that was centralized.? Nonradiating 8/10 intensity and was constant.? Did not radiate to his neck are arm.? Patient had an episode of nausea and vomiting.? He denied any fever chills.? He denied any shortness of breath diaphoresis or any exe
--- NOTE | 2022-07-28 11:30 | PM.IMPN ---
Progress Note: A&P Assessment and Plan (1) Acalculous cholecystitis: Code(s): K81.9 - Cholecystitis, unspecified Status: Acute Assessment and Plan: CT of the abd/pel showed acalculous cholecystitis MRCP pending read Ultrasound of the RUQ showed acute cholecystitis Clear liquids for now AST/ALT elevated at 289/291 Alk Phos 237, T bili 4.6 Continue IV fluids for now General surgery and GI consulted ERCP in the am (2) Acute pancreatitis: Qualifiers: Acute pancreatitis complication: unspecified Pancreatitis type: biliary Qualified Code(s): K85.10 - Biliary acute pancreatitis without necrosis or infection Code(s): K85.90 - Acute pancreatitis without necrosis or infection, unspecified Status: Acute Assessment and Plan: Lipase was 475, currently at 111 Clear liquids added Continue fluids for now Trend lipase Pain medication (3) Diabetes: Qualifiers: Diabetes mellitus complication status: with hyperglycemia Diabetes mellitus fpc insulin use: with fpc use Diabetes mellitus type: type 2 Qualified Code(s): E11.65 - Type 2 diabetes mellitus with hyperglycemia; Z79.4 - alf (current) use of insulin Code(s): E11.9 - Type 2 diabetes mellitus without complications Status: Acute Assessment and Plan: Current 245 Accu-Cheks every 6 hours sliding scale insulin hypoglycemic protocol A1c 9.7 Hold metformin (4) Tobacco abuse: Code(s): Z72.0 - Tobacco use Status: Acute Assessment and Plan: Current everyday smoker Add patch and gum PRN Smoking cessation education given (5) Neuropathy: Code(s): G62.9 - Polyneuropathy, unspecified Status: Acute Assessment and Plan: Gabapentin 300mg PO TID on hold NPO for now restart when appropriate (6) Mixed hyperlipidemia: Code(s): E78.2 - Mixed hyperlipidemia Status: Acute Assessment and Plan: Atorvastatin continued at this time (7) Essential (primary) hypertension: Code(s): I10 - Essential (primary) hypertension Status: Acute Assessment and Plan: P.r.n. hydralazine. Continue lisinopril BP is 135/61 Stable continue to trend Time Spent With Patient Time: 48 minutes Time with patient: Greater than 35 minutes Subjective Date/time seen: 07/28/22 1130 Interval history: 07/28/221129 Patient was sitting up in bed eating his lunch. Patient states that he is feeling okay right now. He is still having some epigastric pain which is the same pain he came in for. He denies any current chest pain, shortness a breath, nausea, vomiting, diarrhea constipation. He is able to tolerate his food. ERCP planned for tomorrow. 07/27/22? 12:54 ?this 66-year-old male patient with a history of COPD and is chronically on oxygen at 2 L per nasal cannula.? He has a history of hypertension and diabetes.? Patient stated that he woke up around 2:00 a.m. from his sleep with complaints of chest pain that was centralized.? Nonradiating 8/10 intensity and was constant.? Did not radiate to his neck are arm.? Patient had an episode of nausea and vomiting.? He denied any fever chills.? He denied any shortness of breath diaphoresis or any exertional dyspnea.? No increased swelling to his lower extremities.? His blood sugar was noted to be 263.? Total bilirubin 1.7.? AST 173.? ALT 70 alkaline phosphatase .? Troponin nonreactive x3.? Lipase 475.? The patient was given aspirin, Dilaudid, Pepcid, IV fluids,? and Zosyn.? Chest x-ray was read as no acute cardiopulmonary disease.? Abdominal pelvis CT was read as a following?Enlarged gallbladder with gallbladder wall thickening and biliary dilatation. No obstructing stone or mass identified. Cannot exclude cholecystitis. 2: Intermediate density left renal mass measuring 1.3 cm. Correlat
--- NOTE | 2022-07-28 11:34 | PC.NURSE ---
Ankle monitor replaced per Florin, with HDTI
[2022-07-28 11:55] LABS: Glucose Point of Care 235 mg/dl (65-105)
[2022-07-28] MEDS: BENZOCAINE/MENTHOL (*BKC) 18 EA LOZENGE 1 LOZENGE PO ×2 (12:27→16:55)
[2022-07-28 13:33] VITALS: BP 142/62; PULSE 66; RESP 20; TEMP 36.3; O2SAT 95
[2022-07-28] MEDS: SODIUM CHLORIDE 0.9% IV 1,000 ML 75 ML IV CONT (15:00)
[2022-07-28 17:42] LABS: Glucose Point of Care 362 mg/dl (65-105)
[2022-07-28 20:00] VITALS: PULSE 72; RESP 18; O2SAT 93
[2022-07-28] MEDS: PANTOPRAZOLE SODIUM IV 40 MG VIAL IV PUSH (21:08)
[2022-07-28 22:00] VITALS: BP 162/63; PULSE 72; RESP 18; TEMP 36.4; O2SAT 93
[2022-07-29] VITALS (11 sets, daily range): BP systolic 135–153; BP diastolic 45–82; PULSE 58–81; RESP 16–27; TEMP 36.1–36.5; O2SAT 93–98
[2022-07-29 00:12] LABS: Glucose Point of Care 356 mg/dl (65-105)
[2022-07-29] MEDS: INSULIN ASPART (*BKC) 100 UNITS/ML SUB-Q ×4 (00:16→21:22)
[2022-07-29] MEDS: PIPERACILLN/TAZ 3.375GM/NS50ML 3.375 GM/50 ML BAG IVPB ×4 (04:04→20:27)
[2022-07-29] MEDS: SODIUM CHLORIDE 0.9% IV 1,000 ML 75 ML IV CONT (04:06)
[2022-07-29 06:35] LABS: Glucose Point of Care 267 mg/dl (65-105)
[2022-07-29 06:49] LABS: Basophils Percent Auto 0.2 % (0.2-1.2); Eosinophils Absolute Auto 0.1 K/mm3 (0-0.3); Eosinophils Percent Auto 1.3 % (0-4.4); Hematocrit 42.4 % (42.0-52.0); Hemoglobin 14.6 g/dL (14.0-18.0); Immature Granulocyte Absolute 0.04 K/mm3 (0.00-0.031); Immature Granulocyte Percent A 0.5 % (0-0.5); Lymphocytes Absolute Auto 1.07 K/mm3 (0.9-3.2); Lymphocytes Percent Auto 12.3 % (18.3-44.2); Mean Corpuscular HGB Conc 34.4 g/dl (32-36); Mean Corpuscular Hemoglobin 28.7 pg (26-34); Mean Corpuscular Volume 83.3 fl (80-100); Mean Platelet Volume 9.6 fl (7.4-10.4); Monocytes Absolute Auto 0.7 K/mm3 (0.1-0.6); Neutrophils Absolute Auto 6.8 K/mm3 (1.3-6.7); Neutrophils Percent Auto 77.7 % (45.5-73.1); Platelet Count Result 150 k/mm3 (150-375); Red Blood Count 5.09 M/mm3 (4.6-6.20); Red Cell Distribution Width 13.6 % (11.5-14.5); White Blood Count 8.7 K/mm3 (4.5-10.0)
[2022-07-29 07:06] LABS: Alanine Aminotransferase 205 U/L (6-50); Albumin Level 3.7 g/dL (3.5-5.1); Alkaline Phosphatase 279 U/L (38-126); Anion Gap 5 mmol/L (8-16); Aspartate Amino Transferase 84 U/L (17-59); Bilirubin,Total 2.4 mg/dL (0.2-1.3); Blood Urea Nitrogen 9 mg/dL (9-20); Calcium 7.8 mg/dL (8.4-10.2); Carbon Dioxide 27 mmol/L (22-30); Chloride 102 mmol/L (98-107); Estimated CRCL calculation 122 ml/min; Estimated Glomerular Filt Rate > 60; Glucose 281 mg/dL (65-110); Magnesium 1.8 mg/dL (1.6-2.3); Potassium 3.7 mmol/L (3.4-5.0); Sodium 134 mmol/L (137-145)
[2022-07-29] MEDS: GABAPENTIN 300 MG CAPSULE PO ×2 (08:47→17:29)
[2022-07-29] MEDS: PANTOPRAZOLE SODIUM IV 40 MG VIAL IV PUSH ×2 (08:49→20:27)
[2022-07-29] MEDS: lisinopriL 20 MG TABLET PO (08:49)
[2022-07-29] MEDS: ATORVASTATIN 40 MG TABLET 80 MG PO (08:49)
--- NOTE | 2022-07-29 09:45 | PM.IMPN ---
Progress Note: A&P Assessment and Plan (1) Acalculous cholecystitis: Code(s): K81.9 - Cholecystitis, unspecified Status: Acute Assessment and Plan: CT of the abd/pel showed acalculous cholecystitis MRCP Acute cholecystitis, mildly dilated common bile duct, mild findings acute interstitial pancreatitis Ultrasound of the RUQ showed acute cholecystitis NPO for ERCP AST/ALT elevated at 289/291 Alk Phos 237, T bili 4.6 Currently AST/ALT 84/205, t. 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: with computer terminal operator use Diabetes mellitus type: type 2 Qualified Code(s): E11.65 - Type 2 diabetes mellitus with hyperglycemia; Z79.4 - termite technician (current) use of insulin Code(s): E11.9 - Type 2 diabetes mellitus without complications Status: Acute Assessment and Plan: Current 281 Accu-Cheks every 6 hours sliding scale insulin, increase sliding scale hypoglycemic protocol A1c 9.7 Hold metformin (4) Tobacco abuse: Code(s): Z72.0 - Tobacco use Status: Acute Assessment and Plan: Current everyday smoker Add patch and gum PRN Smoking cessation education given (5) Neuropathy: Code(s): G62.9 - Polyneuropathy, unspecified Status: Acute Assessment and Plan: Gabapentin 300mg PO TID on hold NPO for now restart when appropriate (6) Mixed hyperlipidemia: Code(s): E78.2 - Mixed hyperlipidemia Status: Acute Assessment and Plan: Atorvastatin continued at this time (7) Essential (primary) hypertension: Code(s): I10 - Essential (primary) hypertension Status: Acute Assessment and Plan: P.r.n. hydralazine. Continue lisinopril BP is 145/45 Stable continue to trend (8) Transaminitis: Code(s): R74.01 - Elevation of levels of liver transaminase levels Status: Acute Assessment and Plan: Elevated upon admission Most likely related to the pancreatitis Continue to trend Time Spent With Patient Time: 48 minutes Time with patient: Greater than 35 minutes Subjective Date/time seen: 07/29/22944 Interval history: 07/29/22944 Patient is currently lying in bed resting. He stated that his pain is lot better today. He denies any current chest pain, shortness a breath, nausea, vomiting, diarrhea or constipation. ERCP is scheduled for today. At this time patient is resting comfortably. 07/28/22 1130 Patient was sitting up in bed eating his lunch. Patient states that he is feeling okay right now. He is still having some epigastric pain which is the same pain he came in for. He denies any current chest pain, shortness a breath, nausea, vomiting, diarrhea constipation. He is able to tolerate his food. ERCP planned for tomorrow. 07/27/22? 12:54 ?this 66-year-old male patient with a history of COPD and is chronically on oxygen at 2 L per nasal cannula.? He has a history of hypertension and diabetes.? Patient stated that he woke up around 2:00 a.m. from his sleep with complaints of chest pain that was centralized.? Nonradiating 8/10 intensity and was constant.? Did not radiate to his neck are arm.? Patient had an episode of nausea and vomiting.? He denied any fever ch
--- NOTE | 2022-07-29 09:45 | P.PNIM_ITS ---
Progress Note: A&P Assessment and Plan (1) Acalculous cholecystitis: Code(s): K81.9 - Cholecystitis, unspecified Status: Acute Assessment and Plan: * CT of the abd/pel showed acalculous cholecystitis * MRCP Acute cholecystitis, mildly dilated common bile duct, mild findings acute interstitial pancreatitis * Ultrasound of the RUQ showed acute cholecystitis * NPO for ERCP * AST/ALT elevated at 289/291 Alk Phos 237, T bili 4.6 * Currently AST/ALT 84/205, t. 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 insulin 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: with fdc use Diabetes mellitus type: type 2 Qualified Code(s): E11.65 - Type 2 diabetes mellitus with hyperglycemia; Z79.4 - senior care (current) use of insulin Code(s): E11.9 - Type 2 diabetes mellitus without complications Status: Acute Assessment and Plan: * Current 281 * Accu-Cheks every 6 hours * sliding scale insulin, increase sliding scale * hypoglycemic protocol * A1c 9.7 * Hold metformin (4) Tobacco abuse: Code(s): Z72.0 - Tobacco use Status: Acute Assessment and Plan: * Current everyday smoker * Add patch and gum PRN * Smoking cessation education given (5) Neuropathy: Code(s): G62.9 - Polyneuropathy, unspecified Status: Acute Assessment and Plan: * Gabapentin 300mg PO TID on hold * NPO for now * restart when appropriate (6) Mixed hyperlipidemia: Code(s): E78.2 - Mixed hyperlipidemia Status: Acute Assessment and Plan: * Atorvastatin continued at this time (7) Essential (primary) hypertension: Code(s): I10 - Essential (primary) hypertension Status: Acute Assessment and Plan: * P.r.n. hydralazine. * Continue lisinopril * BP is 145/45 * Stable * continue to trend (8) Transaminitis: Code(s): R74.01 - Elevation of levels of liver transaminase levels Status: Acute Assessment and Plan: * Elevated upon admission * Most likely related to the pancreatitis * Continue to trend Time Spent With Patient Time: 48 minutes Time with patient: Greater than 35 minutes Subjective Date/time seen: 07/29/22944 Interval history: 07/29/22944 Patient is currently lying in bed resting. He stated that his pain is lot better today. He denies any current chest pain, shortness a breath, nausea, vomiting, diarrhea or constipation. ERCP is scheduled for today. At this time patient is resting comfortably. 07/28/22 1130 Patient was sitting up in bed eating his lunch. Patient states that he is feeling okay right now. He is still having some epigastric pain wh
[2022-07-29 12:27] LABS: Glucose Point of Care 238 mg/dl (65-105)
--- NOTE | 2022-07-29 13:03 | WPDANESEPPF ---
Anes - Initial Pre Proc Eval Procedure: Operation Date: 07/29/22 14:30 Proposed Procedures p Endoscopic Retro Cholangiopancreatogram - Lance Baez MD Date/Time: 07/29/22 13:03 Surgeon: Wendy López MD Pre Op Diagnosis: abdominal pain,acalculus cholecystitis Patient Data Age: 66 Gender: M Height: 1.75 m Weight: 100 kg Last Vital Signs Temp 96.9 F L 07/29/22 06:00 Pulse 66 07/29/22 06:00 Resp 16 07/29/22 06:00 BP 145/45 H 07/29/22 06:00 Pulse Ox 95 07/29/22 06:00 O2 Del Method Room Air 07/29/22 08:00 O2 Flow Rate 3 07/27/22 20:00 Allergies Allergy/AdvReac Type Severity Reaction Status Date / Time No Known Allergies Allergy Verified 07/29/22 13:05 Home Medications Medication Instructions Recorded Confirmed Type blood sugar diagnostic (OneTouch #100 ea 01/21/22 07/27/22 Rx Ultra Test strips) blood-glucose meter (OneTouch #1 ea 01/21/22 07/27/22 Rx Ultra2 Meter kit) lancets ([employer] UltraSoft #100 ea 01/21/22 07/27/22 Rx Lancets) aspirin 81 mg tablet,delayed 81 mg PO DAILY #30 tabs 02/12/22 07/27/22 Rx release metformin 1,000 mg tablet 1,000 mg PO BID #180 tabs 02/12/22 07/27/22 Rx insulin lispro protamine-lispro See Rx Instructions subcut 04/15/22 07/27/22 Rx 100 unit/mL (75-25) subcutaneous .COMPLEX #15 mL pen (Humalog Mix 75-25 KwikPen) acetaminophen 325 mg tablet 650 mg PO Q6H 05/13/22 07/27/22 History lisinopril 20 mg tablet 20 mg PO QAM #90 tabs 05/13/22 07/27/22 Rx tramadol 50 mg tablet 100 mg PO Q8H PRN pain #180 tabs 06/12/22 07/27/22 Rx gabapentin 300 mg capsule 300 mg PO TID #90 caps 06/24/22 07/27/22 Rx atorvastatin 80 mg tablet 80 mg PO DAILY 07/27/22 07/27/22 History Laboratory Tests 07/28/22 07/29/22 07/29/22 17:39 00:09 05:10 WBC RBC Hgb Hct MCV MCH MCHC RDW Plt Count MPV Immature Gran % (Auto) Neut % (Auto) Lymph % (Auto) [place] % (Auto) Eos % (Auto) Baso % (Auto) Lymph # (Auto) [place] # (Auto) Eos # (Auto) Baso # (Auto) Abs Immat Gran (auto) Absolute Neuts (auto) Absolute Nucleated RBC Nucleated RBC % Sodium Potassium Chloride Carbon Dioxide Anion Gap BUN Creatinine Estim Creat Clear Calc Estimated GFR Glucose POC Capillary Glucose 362 H mg/dl 356 H mg/dl 267 H mg/dl (65-105) (65-105) (65-105) Calcium Magnesium Total Bilirubin AST ALT Alkaline Phosphatase Total Protein Albumin 07/29/22 07/29/22 06:39 12:25 WBC 8.7 K/mm3 (4.5-10.0) RBC 5.09 M/mm3 (4.6-6.20) Hgb 14.6 g/dL (14.0-18.0) Hct 42.4 % (42.0-52.0) MCV 83.3 fl (80-100) MCH 28.7 pg (26-34) MCHC 34.4 g/dl (32-36) RDW 13.6 % (11.5-14.5) Plt Count 150 k/mm3 (150-375) MPV 9.6 fl (7.4-10.4) Immature Gran % (Auto) 0.5 % (0-0.5) Neut % (Auto) 77.7 H % (45.5-73.1) Lymph % (Auto) 12.3 L % (18.3-44.2) [place] % (Auto) 8.0 % (2.6-8.5) Eos % (Auto) 1.3 % (0-4.4) Baso % (Auto) 0.2 % (0.2-1.2) Lymph # (Auto) 1.07 K/mm3 (0.9-3.2) [place] # (Auto) 0.7 H K/mm3 (0.1-0.6) Eos # (Auto) 0.1 K/mm3 (0-0.3) Baso # (Auto) 0.0 K/mm3 (0.0-0.1) Abs Immat Gran (auto) 0.04 H K/mm3 (0.00-0.031) Absolute Neuts (auto) 6.8 H K/mm3 (1.3-6.7) Absolute Nucleated RBC 0.0 K/mm3 (0.0-0.012) Nucleated RBC % 0.0 % (0.0-0.2) Sodium 134 L mmol/L (137-145) Bhumi
[2022-07-29] MEDS: LACTATED RINGERS 1,000 ML 150 ML IV CONT (13:13)
[2022-07-29] MEDS: INDOMETHACIN 50 MG SUPP.RECT 100 MG RECTAL (14:03)
[2022-07-29] MEDS: GLUCAGON FOR INJ 1 MG VIAL IM (14:11)
[2022-07-29 14:52] LABS: Glucose Point of Care 312 mg/dl (65-105)
--- NOTE | 2022-07-29 14:52 | SUR.PHASEII ---
anesthesia notified of pt blood sugar. no new orders.
[2022-07-29 18:20] LABS: Glucose Point of Care 357 mg/dl (65-105)
[2022-07-29 21:01] LABS: Glucose Point of Care 301 mg/dl (65-105)
[2022-07-30] MEDS: PIPERACILLN/TAZ 3.375GM/NS50ML 3.375 GM/50 ML BAG IVPB ×2 (03:28→08:59)
[2022-07-30] MEDS: SODIUM CHLORIDE 0.9% IV 1,000 ML 75 ML IV CONT (03:29)
[2022-07-30 05:57] VITALS: BP 144/67; PULSE 57; RESP 16; TEMP 36.7; O2SAT 95
[2022-07-30 06:16] LABS: Basophils Percent Auto 0.6 % (0.2-1.2); Eosinophils Absolute Auto 0.1 K/mm3 (0-0.3); Eosinophils Percent Auto 1.7 % (0-4.4); Hematocrit 41.5 % (42.0-52.0); Hemoglobin 13.6 g/dL (14.0-18.0); Immature Granulocyte Absolute 0.02 K/mm3 (0.00-0.031); Immature Granulocyte Percent A 0.4 % (0-0.5); Lymphocytes Absolute Auto 0.87 K/mm3 (0.9-3.2); Lymphocytes Percent Auto 16.1 % (18.3-44.2); Mean Corpuscular HGB Conc 32.8 g/dl (32-36); Mean Corpuscular Hemoglobin 27.9 pg (26-34); Mean Corpuscular Volume 85.2 fl (80-100); Monocytes Absolute Auto 0.5 K/mm3 (0.1-0.6); Monocytes Percent Auto 8.3 % (2.6-8.5); Neutrophils Percent Auto 72.9 % (45.5-73.1); Platelet Count Result 156 k/mm3 (150-375); Red Blood Count 4.87 M/mm3 (4.6-6.20); Red Cell Distribution Width 13.9 % (11.5-14.5); White Blood Count 5.4 K/mm3 (4.5-10.0)
[2022-07-30 06:29] LABS: Alanine Aminotransferase 184 U/L (6-50); Albumin Level 3.5 g/dL (3.5-5.1); Alkaline Phosphatase 330 U/L (38-126); Anion Gap 7 mmol/L (8-16); Aspartate Amino Transferase 144 U/L (17-59); Bilirubin,Total 5.4 mg/dL (0.2-1.3); Blood Urea Nitrogen 8 mg/dL (9-20); Calcium 7.9 mg/dL (8.4-10.2); Carbon Dioxide 26 mmol/L (22-30); Chloride 106 mmol/L (98-107); Estimated CRCL calculation 106 ml/min; Estimated Glomerular Filt Rate > 60; Glucose 286 mg/dL (65-110); Magnesium 1.8 mg/dL (1.6-2.3); Potassium 3.8 mmol/L (3.4-5.0); Sodium 139 mmol/L (137-145)
--- NOTE | 2022-07-30 07:19 | WPDGIPROGNO ---
Progress Note: A&P Assessment and Plan (1) Abdominal pain: Code(s): R10.9 - Unspecified abdominal pain Status: Acute Assessment and Plan: this pain came on acutely, waking him up from sleep. Based on the laboratory studies and imaging, it appears that he has acute gallstone pancreatitis. He denies drinking alcohol any time in the recent past. There has been no new change in medications. 07/30/2022 today he denies any pain. He has only minimal tenderness on palpation. (2) Acute pancreatitis: Qualifiers: Pancreatitis type: biliary Acute pancreatitis complication: unspecified Qualified Code(s): K85.10 - Biliary acute pancreatitis without necrosis or infection Code(s): K85.90 - Acute pancreatitis without necrosis or infection, unspecified Status: Acute Assessment and Plan: He woke at 2:00 a.m. with acute abdominal pain that reminded him of previous episodes of pancreatitis. He has had pancreatitis at least twice in the past, And states that he was hospitalized here about five or 6 years ago. The pain is better now that he has been given morphine for pain. He had been nauseated but did not vomit. His liver function studies are somewhat elevated with bilirubin of 1.7, alkaline phosphatase 170, and AST 173. He has had at least 2 other episodes of pancreatitis going back to at least 2016. He denies drinking alcohol although imaging from 6 years ago did show some scarring, but not calcification of the pancreas. 07/28/2022 today he is having more pain. Also his bilirubin has jumped to over 4. Although lipase has decreased, I am concerned about biliary sludge. I think we will hold off on MR CP and simply proceed to ERCP if it can be done with the mass in the head of the pancreas both small stones were removed via ERCP. His last lipase was normal. I told him that because pancreatitis is likely to recur, and that once a person has pancreatitis it does not take much for to happen again, that he needs to avoid alcohol and be on a low-fat diet for 6 weeks. He states he does not drink alcohol. (3) Chronic pancreatitis: Qualifiers: Pancreatitis type: unspecified pancreatitis type Qualified Code(s): K86.1 - Other chronic pancreatitis Code(s): K86.1 - Other chronic pancreatitis Status: Acute Assessment and Plan: Previous imaging study showed scarring of the pancreas indicative of chronic pancreatitis. 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 07/30/22 rather than chronic pancreatitis, I think he was having recurrent acute attacks due to biliary calculi. (4) Splenic vein thrombosis: Code(s): I82.890 - Acute embolism and thrombosis of other specified veins Status: Acute Assessment and Plan: He has been told that the circulation defect caused by the splenic vein thrombosis was responsible for his pancreatitis. 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 He has had complications including circulatory problems in his legs. (6) Pain in the pharynx: Code(s): J39.2 - Other diseases of pharynx Status: Acute Assessment and Plan: he states that the during the night he developed a sore throat which is quite severe at the present time. (7) Acalculous cholecystitis: Code(s): K81.9 - Cholecystitis, unspecified St
--- NOTE | 2022-07-30 07:34 | P.PNIM_ITS ---
Progress Note: A&P Assessment and Plan (1) Acalculous cholecystitis: Code(s): K81.9 - Cholecystitis, unspecified Status: Acute Assessment and Plan: * CT of the abd/pel showed acalculous cholecystitis * MRCP Acute cholecystitis, mildly dilated common bile duct, mild findings acute interstitial pancreatitis * Ultrasound of the RUQ showed acute cholecystitis * ERCP performed and 2 stones removed * AST/ALT continue to be elevated and trending down at 289/291 Alk Phos 237, T bili 4.6 * Currently AST/ALT 144/184, t. 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 use: with half-way use Diabetes mellitus complication status: with hyperglycemia Qualified Code(s): E11.65 - Type 2 diabetes mellitus with hyperglycemia; Z79.4 - alf (current) use of insulin Code(s): E11.9 - Type 2 diabetes mellitus without complications Status: Acute Assessment and Plan: * Current 286 * Accu-Cheks AC/HS * sliding scale insulin, increase sliding scale * hypoglycemic protocol * A1c 9.7 * Hold metformin (4) Tobacco abuse: Code(s): Z72.0 - Tobacco use Status: Acute Assessment and Plan: * Current everyday smoker * Add patch and gum PRN * Smoking cessation education given (5) Neuropathy: Code(s): G62.9 - Polyneuropathy, unspecified Status: Acute Assessment and Plan: * Gabapentin 300mg PO TID on hold * NPO for now * restart when appropriate (6) Mixed hyperlipidemia: Code(s): E78.2 - Mixed hyperlipidemia Status: Acute Assessment and Plan: * Atorvastatin continued at this time (7) Essential (primary) hypertension: Code(s): I10 - Essential (primary) hypertension Status: Acute Assessment and Plan: * P.r.n. hydralazine. * Continue lisinopril * BP is 144/67 * Stable * continue to trend (8) Transaminitis: Code(s): R74.01 - Elevation of levels of liver transaminase levels Status: Acute Assessment and Plan: * Elevated upon admission * Most likely related to the pancreatitis * Continue to trend Time Spent With Patient Time: 48 minutes Time with patient: Greater than 35 minutes Subjective Date/time seen: 07/30/22 07:34 Interval history: 07/30/22 07/29/22 0964 Patient is currently lying in bed resting. He stated that his pain is lot better today. He denies any current chest pain, shortness a breath, nausea, vomiting, diarrhea or constipation. ERCP is scheduled for today. At this time patient is resting comfortably. 07/28/22 1130 Patient was sitting up in bed eating his lunch. Patient states that he
--- NOTE | 2022-07-30 07:34 | PM.IMPN ---
Progress Note: A&P Assessment and Plan (1) Acalculous cholecystitis: Code(s): K81.9 - Cholecystitis, unspecified Status: Acute Assessment and Plan: CT of the abd/pel showed acalculous cholecystitis MRCP Acute cholecystitis, mildly dilated common bile duct, mild findings acute interstitial pancreatitis Ultrasound of the RUQ showed acute cholecystitis ERCP performed and 2 stones removed AST/ALT continue to be elevated and trending down at 289/291 Alk Phos 237, T bili 4.6 Currently AST/ALT 144/184, t. bili 5.4 Continue IV fluids for now General surgery and GI consulted (2) Acute pancreatitis: Qualifiers: Pancreatitis type: biliary Acute pancreatitis complication: unspecified Qualified Code(s): K85.10 - Biliary acute pancreatitis without necrosis or infection Code(s): K85.90 - Acute pancreatitis without necrosis or infection, unspecified Status: Acute Assessment and Plan: Lipase was 475, currently at 111 full liquids current Continue fluids for now Trend lipase Pain medication (3) Diabetes: Qualifiers: Diabetes mellitus type: type 2 Diabetes mellitus group home insulin use: with ocean transportation intermediary use Diabetes mellitus complication status: with hyperglycemia Qualified Code(s): E11.65 - Type 2 diabetes mellitus with hyperglycemia; Z79.4 - [facility] (current) use of insulin Code(s): E11.9 - Type 2 diabetes mellitus without complications Status: Acute Assessment and Plan: Current 286 Accu-Cheks AC/HS sliding scale insulin, increase sliding scale hypoglycemic protocol A1c 9.7 Hold metformin (4) Tobacco abuse: Code(s): Z72.0 - Tobacco use Status: Acute Assessment and Plan: Current everyday smoker Add patch and gum PRN Smoking cessation education given (5) Neuropathy: Code(s): G62.9 - Polyneuropathy, unspecified Status: Acute Assessment and Plan: Gabapentin 300mg PO TID on hold NPO for now restart when appropriate (6) Mixed hyperlipidemia: Code(s): E78.2 - Mixed hyperlipidemia Status: Acute Assessment and Plan: Atorvastatin continued at this time (7) Essential (primary) hypertension: Code(s): I10 - Essential (primary) hypertension Status: Acute Assessment and Plan: P.r.n. hydralazine. Continue lisinopril BP is 144/67 Stable continue to trend (8) Transaminitis: Code(s): R74.01 - Elevation of levels of liver transaminase levels Status: Acute Assessment and Plan: Elevated upon admission Most likely related to the pancreatitis Continue to trend Time Spent With Patient Time: 48 minutes Time with patient: Greater than 35 minutes Subjective Date/time seen: 07/30/22 07:34 Interval history: 07/30/22 07/29/22 0945 Patient is currently lying in bed resting. He stated that his pain is lot better today. He denies any current chest pain, shortness a breath, nausea, vomiting, diarrhea or constipation. ERCP is scheduled for today. At this time patient is resting comfortably. 07/28/22 1130 Patient was sitting up in bed eating his lunch. Patient states that he is feeling okay right now. He is still having some epigastric pain which is the same pain he came in for. He denies any current chest pain, shortness a breath, nausea, vomiting, diarrhea constipation. He is able to tolerate his food. ERCP planned for tomorrow. 07/27/22? 12:54 ?this 66-year-old male patient with a history of COPD and is chronically on oxygen at 2 L per nasal cannula.? He has a history of hypertension and diabetes.? Patient stated that he woke up around 2:00 a.m. from his sleep with complaints of chest pain that was centralized.? Nonradiating 8/10 intensity and was constant.? Did not radiate to his neck are arm.? Patient had an
[2022-07-30 08:00] VITALS: PULSE 57; RESP 16; O2SAT 95
[2022-07-30 08:03] LABS: Glucose Point of Care 313 mg/dl (65-105)
[2022-07-30] MEDS: INSULIN ASPART (*BKC) 100 UNITS/ML SUB-Q (08:56)
[2022-07-30] MEDS: lisinopriL 20 MG TABLET PO (08:57)
[2022-07-30] MEDS: PANTOPRAZOLE SODIUM IV 40 MG VIAL IV PUSH (08:57)
[2022-07-30] MEDS: ATORVASTATIN 40 MG TABLET 80 MG PO (08:57)
[2022-07-30] MEDS: GABAPENTIN 300 MG CAPSULE PO (08:57)
--- NOTE | 2022-07-30 11:11 | PM.PNGS ---
Progress Note: A&P Assessment and Plan (1) Biliary acute pancreatitis: Code(s): K85.10 - Biliary acute pancreatitis without necrosis or infection Status: Acute Assessment and Plan: exam benign, ERCP reviewed, advance to low fat diet, ok to dc home and f/u next week to schedule interval cholecystectomy Subjective Subjective Date/Time Seen: 07/30/22 11:11 Interval history: feels much better, no abd pain, robert full liquids Review of Systems Review of Systems: All systems reviewed & are unremarkable except as noted in HPI and below Exam Const: General: cooperative, comfortable and no acute distress Resp: Auscultation: clear to auscultation bilaterally Cardio: Rate: regular rate Rhythm: regular rhythm GI: Inspection: normal to inspection and non-distended GI Palp: No abdominal tenderness and Yes Soft to palpation Objective Data Vital Signs Vital Signs: Vital Signs - 24 hr 07/29/22 13:15 07/29/22 14:37 07/29/22 14:47 Temperature 36.2 C L 36.5 C Pulse Rate 67 72 74 Respiratory Rate 20 19 23 H Blood Pressure 153/64 H 153/82 H 138/66 Pulse Oximetry 96 98 96 Oxygen Delivery Room Air Simple Face Mask Room Air Oxygen Flow Rate 6 07/29/22 14:57 07/29/22 15:07 07/29/22 15:17 Temperature Pulse Rate 81 65 77 Respiratory Rate 22 H 21 H 19 Blood Pressure 135/73 138/75 138/73 Pulse Oximetry 95 94 93 Oxygen Delivery Room Air Room Air Room Air Oxygen Flow Rate 07/29/22 15:27 07/29/22 15:37 07/29/22 21:49 Temperature 36.5 C Pulse Rate 58 L 62 59 L Respiratory Rate 27 H 22 H 18 Blood Pressure 141/64 H 144/81 H 142/68 H Pulse Oximetry 94 94 97 Oxygen Delivery Room Air Room Air Oxygen Flow Rate 07/29/22 20:00 07/30/22 05:57 Temperature 36.7 C Pulse Rate 59 L 57 L Respiratory Rate 18 16 Blood Pressure 144/67 H Pulse Oximetry 97 95 Oxygen Delivery Room Air Oxygen Flow Rate Intake/Output Intake/Output: Intake & Output 07/27/22 07/28/22 07/29/22 07/30/22 23:59 23:59 23:59 23:59 Intake Total 2390 2713 3410 1020 Output Total 400 2750 2550 1300 Balance 1989 860 -280 Meds/Results Medications: Active Medications Generic Name Dose Route Start Last Admin Trade Name Freq PRN Reason Stop Dose Admin Albuterol 2 puff 07/27/22 15:45 Albuterol Sulfate (*Sp) Aerosol 1 Puff INHALATION Q6HRT PRN Shortness Of Breath Atorvastatin Calcium 80 mg 07/29/22 09:00 07/30/22 08:57 Atorvastatin 40 Mg Tablet PO 80 mg DAILY AMBER Administration Benzocaine 1 lozenge 07/28/22 12:12 07/28/22 16:55 Benzocaine/Menthol (*Bkc) 18 Ea Lozenge PO 1 lozenge PRN PRN Administration Sore Throat Dextrose 12.5 gm 07/29/22 21:11 Dextrose 50% 25 Gm/50 Ml Syringe IV PUSH PRN PRN Hypoglycemia Protocol Gabapentin 300 mg 07/27/22 17:00 07/30/22 08:57 Gabapentin 300 Mg Capsule PO 300 mg TID AMBER Administration Glucagon 1 mg 07/27/22 15:04 07/29/22 14:11 Glucagon For Inj 1 Mg Vial IM 1 mg PRN PRN Administration Hypoglycemia Protocol Glucose 15 gm 07/27/22 15:04 Glucose Oral Gel 15 Gm Of Glucse In 37.5 Gm Tube PO PRN PRN Hypoglycemia Protocol Hydralazine HCl 10 mg 07/27/22 15:05 Hydralazine Hcl 20 Mg/Ml Vial IV PUSH Q8H PRN Blood Pressure - High Hydromorphone HCl 1 mg 07/28/22 00:54 07/28/22 22:40 Hydromorphone Hcl Inj (*Crx) 1 Mg/Ml Syr IV PUSH 1 mg Q4H PRN Administration Pain Rated 7-10 Piperacillin/Tazobactam/Dextrose 3.375 gm in 50 mls @ 100 mls/hr 07/27/22 16:00 07/30/22 08:59 Zosyn 3.375 Gm/Ns 50 Ml IVPB 100 mls/hr Q6H AMBER Administration Dextrose 1,000 mls @ 100 mls/hr 07/29/22 21:11 Dextrose 5% 1,000 Ml IVPB PRN PRN Hypoglycemia Protocol Insulin Aspart 4 - 12 units 07/30/22 08:00 07/30/22 08:56 Insulin Aspart (*Bkc) 100 Units/Ml SUB-Q 10 units TIDWM [facility] Administration Protocol Lisinop
[2022-07-30 11:31] LABS: Glucose Point of Care 399 mg/dl (65-105)
--- NOTE | 2022-07-30 11:45 | PM.DS ---
DS: Admitting Diagnosis Discharge Date 07/30/22 1145 Admitting Diagnosis Acute pancreatitis, gall stones DS: Discharge Diagnosis Discharge Diagnosis (1) Acalculous cholecystitis: Code(s): K81.9 - Cholecystitis, unspecified Status: Acute Assessment and Plan: CT of the abd/pel showed acalculous cholecystitis MRCP Acute cholecystitis, mildly dilated common bile duct, mild findings acute interstitial pancreatitis Ultrasound of the RUQ showed acute cholecystitis ERCP performed and 2 stones removed AST/ALT continue to be elevated and trending down at 289/291 Alk Phos 237, T bili 4.6 Currently AST/ALT 144/184, t. 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 Diabetes mellitus type: type 2 Qualified Code(s): E11.65 - Type 2 diabetes mellitus with hyperglycemia; Z79.4 - buttermaker helper (current) use of insulin Code(s): E11.9 - Type 2 diabetes mellitus without complications Status: Acute Assessment and Plan: Current 286 Accu-Cheks AC/HS sliding scale insulin, increase sliding scale hypoglycemic protocol A1c 9.7 Hold metformin (4) Tobacco abuse: Code(s): Z72.0 - Tobacco use Status: Acute Assessment and Plan: Current everyday smoker Add patch and gum PRN Smoking cessation education given (5) Neuropathy: Code(s): G62.9 - Polyneuropathy, unspecified Status: Acute Assessment and Plan: Gabapentin 300mg PO TID on hold NPO for now restart when appropriate (6) Mixed hyperlipidemia: Code(s): E78.2 - Mixed hyperlipidemia Status: Acute Assessment and Plan: Atorvastatin continued at this time (7) Essential (primary) hypertension: Code(s): I10 - Essential (primary) hypertension Status: Acute Assessment and Plan: P.r.n. hydralazine. Continue lisinopril BP is 144/67 Stable continue to trend (8) Transaminitis: Code(s): R74.01 - Elevation of levels of liver transaminase levels Status: Acute Assessment and Plan: Elevated upon admission Most likely related to the pancreatitis Continue to trend DS: Summary Hospital Course Hospital Course: patient is a 66 year male with a past medical history of COPD, hypertension, diabetes who presented to the ED with complaints of chest pain and epigastric pain. Upon arrival his blood sugar was noted to be 263 along with AST at 173 and ALT of 70 and T bili of 1.7. Troponins were negative lipase was elevated patient was given IV fluids and started on IV antibiotics. Chest x-ray was read as no acute cardiopulmonary disease. Abdominal pelvis CT was showed is enlarged gallbladder with gallbladder wall thickening and dilatation. No stones were seen in the CT. Ultrasound of the right upper quadrant shows mild call bladder wall thickening with positive Scott's sign. GI was consulted. MRCP was performed did show acute cholecystitis, mild dilated common bile duct, acute interstitial pancreatitis. Patient was taken for an ERCP in 2 stones removed along with some sludge. lipase was slightly elevated however is currently at 111. Glucose has remained slightly elevated insulin has been changed. A1c is 9.7. currently patient is
--- NOTE | 2022-07-30 11:45 | P.DS_ITS ---
DS: Admitting Diagnosis Discharge Date 07/30/22 1145 Admitting Diagnosis Acute pancreatitis, gall stones DS: Discharge Diagnosis Discharge Diagnosis (1) Acalculous cholecystitis: Code(s): K81.9 - Cholecystitis, unspecified Status: Acute Assessment and Plan: * CT of the abd/pel showed acalculous cholecystitis * MRCP Acute cholecystitis, mildly dilated common bile duct, mild findings acute interstitial pancreatitis * Ultrasound of the RUQ showed acute cholecystitis * ERCP performed and 2 stones removed * AST/ALT continue to be elevated and trending down at 289/291 Alk Phos 237, T bili 4.6 * Currently AST/ALT 144/184, t. 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 mellitus buttermaker insulin use: with skilled nursing use Diabetes mellitus type: type 2 Qualified Code(s): E11.65 - Type 2 diabetes mellitus with hyperglycemia; Z79.4 - snf (current) use of insulin Code(s): E11.9 - Type 2 diabetes mellitus without complications Status: Acute Assessment and Plan: * Current 286 * Accu-Cheks AC/HS * sliding scale insulin, increase sliding scale * hypoglycemic protocol * A1c 9.7 * Hold metformin (4) Tobacco abuse: Code(s): Z72.0 - Tobacco use Status: Acute Assessment and Plan: * Current everyday smoker * Add patch and gum PRN * Smoking cessation education given (5) Neuropathy: Code(s): G62.9 - Polyneuropathy, unspecified Status: Acute Assessment and Plan: * Gabapentin 300mg PO TID on hold * NPO for now * restart when appropriate (6) Mixed hyperlipidemia: Code(s): E78.2 - Mixed hyperlipidemia Status: Acute Assessment and Plan: * Atorvastatin continued at this time (7) Essential (primary) hypertension: Code(s): I10 - Essential (primary) hypertension Status: Acute Assessment and Plan: * P.r.n. hydralazine. * Continue lisinopril * BP is 144/67 * Stable * continue to trend (8) Transaminitis: Code(s): R74.01 - Elevation of levels of liver transaminase levels Status: Acute Assessment and Plan: * Elevated upon admission * Most likely related to the pancreatitis * Continue to trend DS: Summary Hospital Course Hospital Course: patient is a 66 year male with a past medical history of COPD, hypertension, diabetes who presented to the ED with complaints of chest pain and epigastric pain. Upon arrival his blood sugar was noted to be 263 along with AST at 173 and ALT of 70 and T bili of 1.7. Troponins were negative lipase was elevated patient was given IV fluids and started on IV antibiotics. Chest x-ray was read as no acute cardiopulm
== END 2022-07-30 13:15 | disposition home or self-care (01) | DRG 439 ==
LOC: ANHED 09:31 → ANHIMU 11:25 → ANH3MEDSUR 11:32
PROVIDERS: Internal Medicine Gastroenterology; Nurse Practitioner; Admitting Provider Family Medicine; Emergency Provider Emergency Medicine; PCP Family Medicine; Visit Provider Nurse Practitioner
PROC: 0FC98ZZ Extirpation of Matter from Common Bile Duct, Via Natural or Artificial Opening Endoscopic (ICD-10-PCS; CPT 43260; principal; 2022-07-29 14:30)
DX: K85.10 Biliary acute pancreatitis without necrosis or infection (principal); K80.42 Calculus of bile duct with acute cholecystitis without obstruction; K86.1 Other chronic pancreatitis; K57.10 Diverticulosis of small intestine without perforation or abscess without bleeding; E78.2 Mixed hyperlipidemia; E11.65 Type 2 diabetes mellitus with hyperglycemia; E11.40 Type 2 diabetes mellitus with diabetic neuropathy, unspecified; E55.9 Vitamin D deficiency, unspecified; F17.210 Nicotine dependence, cigarettes, uncomplicated; I10 Essential (primary) hypertension; J02.9 Acute pharyngitis, unspecified; J44.9 Chronic obstructive pulmonary disease, unspecified; M06.9 Rheumatoid arthritis, unspecified; R09.02 Hypoxemia; Z86.718 Personal history of other venous thrombosis and embolism; Z99.81 Dependence on supplemental oxygen; Z79.4 Long term (current) use of insulin; Z79.84 Long term (current) use of oral hypoglycemic drugs
CPT/HCPCS: 36415; 71045; 74177; 74183; 74329; 76376; 76705; 80053; 82948; 83036; 83605; 83690; 83735; 83880; 84443; 84484; 85025; 85055; 85610; 85730; 87040; 93005; 96361; 96365; 96366; 96367; 96375; 96376; 99285; A9270; A9577; C9113; G0378; J0330; J1170; J1610; J1815; J2405; J2543; J2704; J3475; J7030; J7120; Q9967

== ENCOUNTER 2023-06-06 07:16 | Outpatient (CLI) | payer MEDICARE, SELFPAY ==
--- NOTE | 2023-06-06 07:28 | ECHO_ITS ---
Patient Info Name: Jas Ibanez Age: 67 years : 1955 Gender: Male Ht: 67 in Wt: 230 lbs BSA: 2.26 m2 HR: 62 bpm BP: 124 / 74 mmHg Technical Quality: Fair Exam Date: 06/06/2023 7:47 AM Exam Location: Echo Lab Patient Status: Outpatient Admit Date: 06/06/2023 Staff Ordering Physician: Cassie Spain APRN Skilled Nursing Facilities Professional: Attending Provider: Cassie Spain APRN Referring Physician: Judit RODRIGUEZ; Exam Type: CA echo doppler color flow Study Info Indications R42 - Dizziness and giddiness Complete two-dimensional, color flow and Doppler transthoracic echocardiogram is performed. Summary 1. Complete two-dimensional, color flow and Doppler transthoracic echocardiogram is performed. 2. Left ventricular chamber dimension is normal. 3. Left ventricular systolic function is normal, estimated at 60-65%. 4. There is mild concentric increased left ventricular wall thickness. 5. The left ventricular diastolic function is grade I diastolic dysfunction. 6. E/e' 11 is mildly elevated. 7. Left atrial chamber dimension is mildly enlarged. 8. There is mild aortic valve sclerosis. 9. There is trace aortic valve regurgitation. Left Ventricle E/e' 11 is mildly elevated. Left ventricular chamber dimension is normal. Left ventricular systolic function is normal, estimated at 60-65%. There is mild concentric increased left ventricular wall thickness. The left ventricular diastolic function is grade I diastolic dysfunction. Right Ventricle Right ventricular systolic function is normal and with normal TAPSE 2.8 cm. Right ventricular chamber dimension is normal. Left Atria Left atrial chamber dimension is mildly enlarged. Right Atria Right atrial chamber dimension is normal. Aortic Valve The aortic valve is trileaflet. There is mild aortic valve sclerosis. There is no aortic valve stenosis. There is trace aortic valve regurgitation. Pulmonic Valve There is no pulmonic regurgitation. Mitral Valve There is no mitral valve stenosis. There is no mitral valve regurgitation. Tricuspid Valve There is no tricuspid valve regurgitation. Pericardium/Pleural There is no pericardial effusion. Inferior Vena Cava Normal inferior vena cava with >50% collapse upon inspiration consistent with normal right atrial pressure, 5 mmHg. Aorta The aortic root size at the sinus of Valsalva is normal. Left Ventricular Outflow Tract Name Value Normal LVOT 2D LVOT Diameter 2.0 cm LVOT Doppler LVOT Peak Gradient 5 mmHg LVOT Mean Gradient 2 mmHg LVOT VTI 25 cm LVOT VTI/AV VTI Ratio 0.6 LVOT Stroke Volume 79 ml LVOT CO 4.4 l/min LVOT CI 2.0 l/min/m2 Pulmonic Valve Name Value Normal PV Doppler PV Peak Gradient 4 mmHg Mitral Valve ---
== END 2023-06-06 07:17 | disposition home or self-care (01) ==
LOC: ANHCARD 07:18
PROVIDERS: PCP Family Medicine; Visit Provider Nurse Practitioner Adult Health
DX: R42 Dizziness and giddiness (principal); Z12.11 Encounter for screening for malignant neoplasm of colon
CPT/HCPCS: 93306

== ENCOUNTER 2023-07-11 08:34 | Outpatient (CLI) | payer MEDICARE, SELFPAY ==
[2023-07-11 09:28] LABS: Hematocrit 47.4 % (42.0-52.0); Hemoglobin 16.1 g/dL (14.0-18.0); Mean Corpuscular Hemoglobin 28.5 pg (26-34); Mean Platelet Volume 10.1 fl (7.4-10.4); Platelet Count Result 173 k/mm3 (150-375); Red Blood Count 5.64 M/mm3 (4.6-6.20); Red Cell Distribution Width 13.9 % (11.5-14.5); White Blood Count 7.5 K/mm3 (4.5-10.0)
[2023-07-11 09:41] LABS: Alanine Aminotransferase 16 U/L (6-50); Albumin Level 3.9 g/dL (3.5-5.1); Alkaline Phosphatase 102 U/L (38-126); Anion Gap 4 mmol/L (4-12); Aspartate Amino Transferase 21 U/L (17-59); Bilirubin,Total 0.8 mg/dL (0.2-1.3); Blood Urea Nitrogen 14 mg/dL (9-20); Calcium 9.5 mg/dL (8.4-10.2); Carbon Dioxide 33 mmol/L (22-30); Chloride 99 mmol/L (98-107); Cholesterol 106 mg/dL (0-200); Estimated Glomerular Filt Rate > 60; Glucose 196 mg/dL (65-110); HDL Direct 24 mg/dL; Potassium 3.7 mmol/L (3.4-5.0); Sodium 136 mmol/L (137-145); Triglycerides 404 mg/dL (<150)
[2023-07-11 09:53] LABS: LDL Cholesterol Direct 38 mg/dL
[2023-07-11 10:40] LABS: Hemoglobin A1C 8.7 % (<5.7)
== END 2023-07-11 08:35 | disposition home or self-care (01) ==
LOC: ANHLAB 08:36
PROVIDERS: PCP Family Medicine; Visit Provider Nurse Practitioner Adult Health
DX: E78.2 Mixed hyperlipidemia (principal); I10 Essential (primary) hypertension; E11.65 Type 2 diabetes mellitus with hyperglycemia; Z79.4 Long term (current) use of insulin
CPT/HCPCS: 36415; 80053; 80061; 83036; 85027

== ENCOUNTER 2023-07-21 08:45 | Outpatient (CLI) | payer MEDICARE, SELFPAY ==
--- NOTE | ~2023-07-21 | US_ITS ---
EXAMINATION: US carotid duplex BI DATE: 07/21/2023 09:47 INDICATION: Dizziness. TECHNIQUE: Grayscale, color Doppler, and pulsed Doppler images of the cervical carotid arteries were obtained. The degree of vessel stenosis is placed in one of the following categories: normal, <50%, 5 0-69%, >=70% but less than near-occlusion, near-occlusion, or total occlusion. Note that percent sten osis relative to normal distal artery lumen diameter is indirectly measured from velocity measurement s as described by Al, et al. Radiology 2003; 229:340-346. COMPARISON: None. FINDINGS: RIGHT: The right common carotid artery (CCA) peak systolic velocity (PSV) is 70 cm/s. The right internal car otid artery (ICA) PSV is 70 cm/s. The right ICA end-diastolic velocity (EDV) is 18 cm/s. The right IC A/CCA PSV ratio is 1.0. Grayscale and color Doppler images yield an estimate of <50% diameter reducti on from plaque in the ICA. There is antegrade flow in the right vertebral artery. LEFT: The left CCA PSV is 70 cm/s. The left ICA PSV is 139 cm/s. The left ICA EDV is 38 cm/s. The left ICA/ CCA PSV ratio is 2.0. Grayscale and color Doppler images yield an estimate of <50% diameter reduction from plaque in the ICA. There is antegrade flow in the left vertebral artery. IMPRESSION: 1. <50% stenosis in the right internal carotid artery. 2. <50% stenosis in the left internal carotid artery. Reviewed, dictated and finalized at location A.
== END 2023-07-21 08:46 | disposition home or self-care (01) ==
PROVIDERS: PCP Family Medicine; Visit Provider Nurse Practitioner Adult Health
DX: I35.1 Nonrheumatic aortic (valve) insufficiency (principal); R42 Dizziness and giddiness; I65.23 Occlusion and stenosis of bilateral carotid arteries
CPT/HCPCS: 93880

== ENCOUNTER 2023-09-02 10:14 | Outpatient (CLI) | payer MEDICARE, SELFPAY ==
--- NOTE | ~2023-09-02 | US_ITS ---
EXAMINATION:US venous doppler LE BI INDICATION:Bilateral leg swelling TECHNIQUE: Multiple grayscale, color flow and Doppler images of the right and left lower extremity de ep venous systems were obtained and reviewed. COMPARISON:04/17/2020 FINDINGS: The common femoral, superficial femoral and popliteal veins demonstrate normal respiratory variation, augmentation and compressibility. Color flow is also seen within the posterior tibial, pe roneal, greater saphenous and profunda veins. IMPRESSION: 1: No lower extremity deep venous thrombosis. Reviewed, dictated and finalized at location B.
[2023-09-02 12:45] LABS: Creatinine Urine 66.3 mg/dL
[2023-09-02 12:54] LABS: Prostate Specific Antigen 0.6 ng/mL (< OR = 4.0)
[2023-09-02 15:00] LABS: Microalbumin Urine Random > 1140.0 mg/L (0-16.7)
== END 2023-09-02 10:15 | disposition home or self-care (01) ==
LOC: ANHIMG 10:19
PROVIDERS: PCP Family Medicine; Visit Provider Family Medicine
DX: Z12.5 Encounter for screening for malignant neoplasm of prostate (principal); E11.65 Type 2 diabetes mellitus with hyperglycemia; R60.0 Localized edema; Z79.4 Long term (current) use of insulin
CPT/HCPCS: 36415; 82043; 84153; 93970; G0103

== ENCOUNTER 2023-09-11 08:51 | Outpatient (CLI) | payer MEDICARE, SELFPAY ==
--- NOTE | ~2023-09-11 | NM_ITS ---
EXAMINATION: NM sidney stress w perfusion DATE: 09/11/2023 13:00 INDICATION: Other forms of dyspnea TECHNIQUE: Rest images were obtained following intravenous administration of 9.4 mCi Tc99m tetrofosmi n (Myoview). The patient was infused intravenously with Lexiscan (Regadenoson). Then, 30.8 mCi Tc99m tetrofosmin (Myoview) was administered intravenously, and stress images were obtained. Data was recon structed into short axis and horizontal and vertical long axis SPECT images. Gated SPECT images were also obtained. COMPARISON: None. FINDINGS: There is no definite reversible or fixed perfusion abnormality to suggest ischemia or infar ction. There is normal left ventricular chamber size, wall motion and ejection fraction. Left ventr icular ejection fraction measures 60%. IMPRESSION: 1. Normal myocardial perfusion at rest and during stress. 2. Left ventricular ejection fraction measuring 68%. Reviewed, dictated and finalized at location B.
--- NOTE | 2023-09-11 09:02 | EST_ITS ---
Patient Info Name: Jas Ibanez Age: 68 years : 1955 Gender: Male Ht: 69 in Wt: 220 lbs BSA: 2.24 m2 HR: 81 bpm BP: 169 / 69 mmHg Heart Rhythm: Sinus Rhythm Exam Date: 09/11/2023 11:00 AM Exam Location: Echo Lab Patient Status: Outpatient Admit Date: 09/11/2023 Staff Ordering Physician: Juan Antonio Hutchins DO Attending Provider: Juan Antonio Hutchins DO Exercise Technologist: Kylee Jarrett CT Exercise Physician: Juan Antonio Hutchins DO Exam Type: CA stress sidney w NM Study Info Indications R06.09 - Other forms of dyspnea A regadenoson stress test was performed. Summary 1. 1. Negative lexiscan stress test for ischemic ST changes by ECG criteria. 2. 2. Baseline hypertension. 3. 3. Nuclear scan to follow and will be reported separately. Please correlate with it. 4. 4. Patient informed of the above results. Protocol: Lexiscan Stress ECG Details Stage: REST Duration (min): 7 min : 18 sec HR (bpm): 80 SBP (mmHg): 169 DBP (mmHg): 69 Stage: REST Duration (min): 7 min : 43 sec HR (bpm): 80 SBP (mmHg): 169 DBP (mmHg): 69 Stage: STAGE 1 Duration (min): 1 min : 0 sec HR (bpm): 95 SBP (mmHg): 178 DBP (mmHg): 77 Stage: RECOVERY Duration (min): 1 min : 0 sec HR (bpm): 97 SBP (mmHg): 178 DBP (mmHg): 77 Stage: RECOVERY Duration (min): 2 min : 0 sec HR (bpm): 94 SBP (mmHg): 178 DBP (mmHg): 77 Stage: RECOVERY Duration (min): 3 min : 0 sec HR (bpm): 92 SBP (mmHg): 178 DBP (mmHg): 77 Stage: RECOVERY Duration (min): 3 min : 53 sec HR (bpm): 88 SBP (mmHg): 180 DBP (mmHg): 63 Rest HR: 80 bpm Peak HR: 101 bpm Rest Sys BP: 169 mmHg Peak Sys BP: 180 mmHg Max Pred HR: 153 bpm % Max Pred HR: 66 % Target HR: 130 bpm Max RPP: 18,180 bpm*mmHg Termination Reason: Completed protocol Cardiac Symptoms: Shortness of breath Total Time: 1 min : 0 sec Rest Gray BP: 69 mmHg Peak Gray BP: 63 mmHg Total Dose: 0.4 mg Resting ECG Sinus rhythm, BRWP. Stress ECG No ST changes. Arrhythmias None. Report Signatures
== END 2023-09-11 08:52 | disposition home or self-care (01) ==
PROVIDERS: PCP Family Medicine; Visit Provider Internal Medicine Cardiovascular Disease
DX: R06.09 Other forms of dyspnea (principal); I10 Essential (primary) hypertension
CPT/HCPCS: 78452; 93017; A9502

== ENCOUNTER 2024-03-02 16:06 | Outpatient (CLI) | payer MEDICARE, SELFPAY ==
--- NOTE | ~2024-03-02 | US_ITS ---
EXAMINATION: US renal BI DATE: 03/02/2024 15:45 INDICATION: Calculus of kidney TECHNIQUE: Multiple ultrasound grayscale images of the kidneys were obtained. COMPARISON: None. FINDINGS: The right kidney measures 14.9 x 5.5 x 7.7 cm. The left kidney measures 14.2 x 5.0 x 6.4 cm. The kidn eys demonstrate normal echogenicity. There are a few bilateral echogenic renal stones with typical ar tifact on color Doppler in both kidneys. There is no hydronephrosis in either kidney. The bladder is normal. IMPRESSION: 1. Bilateral nonobstructing nephrolithiasis with no hydronephrosis. Reviewed, dictated and finalized at location A. 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
[2024-03-02 16:25] LABS: Hematocrit 49.4 % (42.0-52.0); Hemoglobin 16.3 g/dL (14.0-18.0); Mean Corpuscular Hemoglobin 28.6 pg (26-34); Mean Corpuscular Volume 86.7 fl (80-100); Mean Platelet Volume 9.6 fl (7.4-10.4); Platelet Count Result 164 k/mm3 (150-375); Red Cell Distribution Width 14.3 % (11.5-14.5); White Blood Count 8.6 K/mm3 (4.5-10.0)
[2024-03-02 17:01] LABS: Albumin Level 3.8 g/dL (3.5-5.1); Anion Gap 1 mmol/L (4-12); Blood Urea Nitrogen 20 mg/dL (9-20); Calcium 9.1 mg/dL (8.4-10.2); Carbon Dioxide 35 mmol/L (22-30); Chloride 105 mmol/L (98-107); Estimated Glomerular Filt Rate > 60; Glucose 94 mg/dL (65-110); Phosphorus 3.3 mg/dL (2.5-4.5); Sodium 141 mmol/L (137-145)
[2024-03-02 17:02] LABS: Creatinine Urine 72.6 mg/dL
[2024-03-02 17:45] LABS: Total Protein Urine Random 312 mg/dL
== END 2024-03-02 16:07 | disposition home or self-care (01) ==
PROVIDERS: PCP Family Medicine; Visit Provider Internal Medicine Nephrology
DX: N20.0 Calculus of kidney (principal); R80.9 Proteinuria, unspecified; E11.65 Type 2 diabetes mellitus with hyperglycemia; Z79.4 Long term (current) use of insulin
CPT/HCPCS: 36415; 76775; 80069; 82570; 84156; 85027

== ENCOUNTER 2024-07-20 08:34 | Outpatient (RCR) | payer MEDICARE, MEDICAID, SELFPAY ==
--- NOTE | 2024-07-13 09:58 | PCWOUND ---
WOCN NOTE Patient was scheduled for appointment today 07/13/24. Patient did not show up for this appointment or call to cancel. When patient was notified today to see if he was coming, patient became angry and argumentative stating he had an appointment with his PCP on Friday and he wouldn't make 2 appointments on the same day. Tried to explain to patient that today is Friday07/13/24 and that he had an appointment today. Asked patient if he wanted to be rescheduled for tomorrow, patient refused as that is not enough time for him to set up a ride. Patient was rescheduled for Friday07/20/24 at 0900.
[2024-07-20 09:23] VITALS: BMI 32.5
--- NOTE | 2024-09-03 12:40 | PCWOUND ---
WOCN NOTE new referral sent by PCP for a blood blister to the right 1st toe. Call placed to patient who states blood blister is still intact and dry. Explained to patient that we do not open blood blisters, but best practice is to apply Betadine daily for topical antimicrobial coverage and to keep blister dry and intact to promote healing. No appointment needed at this time, patient to apply Betadine daily and contact wound center if blood blister opens. Call and message left for PCP office notifying them of conservation with patient and plan of care at this time.
== END 2024-10-04 08:10 | disposition home or self-care (01) ==
LOC: ANHWOC 08:34
PROVIDERS: PCP Nurse Practitioner Family; Visit Provider Nurse Practitioner Family
DX: L03.90 Cellulitis, unspecified (principal)
CPT/HCPCS: 99213; G0463

== ENCOUNTER 2024-08-19 09:50 | Outpatient (CLI) | payer MEDICARE, MEDICAID, SELFPAY ==
--- OUTSIDE RECORDS SUMMARY | 2024-08-19 10:12 | XMS_ITS | Clinical Summary ---
Author Organization [facility] [id number] [facility] Address [address] [place] [address] Care Team Providers Care Purchasing Administrative Assistant Name Role Phone Chauncey Curtis MD Primary Care Provider [phone] Allergies No known active allergies Medications amLODIPine (NORVASC) 5 mg tablet Take 5 mg by mouth daily. 06/16/2020 Active aspirin (ECOTRIN EC) 81 mg Tablet, Delayed Release (E.C.) Take 81 mg by mouth daily. Active atorvastatin (LIPITOR) 80 mg tablet Take 80 mg by mouth daily. 07/03/2020 Active gabapentin (NEURONTIN) 300 mg capsule Take 300 mg by mouth daily. 07/31/2020 Active glimepiride (AMARYL) 4 mg tablet Take 4 mg by mouth daily. 08/17/2020 Active HYDROcodone-acet aminophen (NORCO) 7.5-325 mg Tablet daily. 08/25/2020 Active insulin aspart protamine-aspart (NovoLOG MIX 70-30) 100 unit/mL (70-30) pen syringe Active lisinopriL (PRINIVIL) 40 mg tablet Take 40 mg by mouth daily. 06/16/2020 Active metFORMIN (GLUCOPHAGE) 1,000 mg tablet Take 1,000 mg by mouth daily. 07/04/2020 Active omega-3 acid ethyl esters (LOVAZA) 1 gram Capsule Take 1 Gram by mouth daily. 07/20/2020 Active sildenafiL (VIAGRA) 100 mg tablet Take 100 mg by mouth 1 time daily as needed. Active Active Problems Patient Care Coordination No te Formatting of this note migh t be different from the original. 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 Sacha Castillo MD, [facility], [facility] V[facility] - [address] [facility] Dr. Sams - DPM Problem Noted Date Diagnosed Date Venous insufficiency (chronic) (peripheral) 10/2020 Essential hypertension 09/21/2020 Family History Medical History Relation Name Comments Diabetes Father Relation Name Status Comments Father Social History Tobacco Use Types Packs/Day Years Used Date Smoking Tobacco: Every Day Cigarettes 1 40 Smokeless Tobacco: Never Comments:1.5 packs Sex and Gender Information Value Date Recorded Sex Assigned at Not on file Legal Sex Male 11:04 AM CDT Gender Identity Not on file Sexual Orientation Not on file Last Filed Vital Signs Vital Sign Reading Time Taken Comments Blood Pressure 142/64 09/21/2020 9:03 AM CDT Pulse 66 09/21/2020 9:03 AM CDT Temperature - - Respiratory Rate - - Oxygen Saturation 95% 09/21/2020 9:03 AM CDT Inhaled Oxygen Concentration - - Weight 99.8 kg (220 lb) 09/21/2020 9:03 AM CDT Height 175.3 cm (5' 9) 09/21/2020 9:03 AM CDT Body Mass Index 32.49 09/21/2020 9:03 AM CDT Plan of Treatment Health Maintenance Due Date Last Done Comments DIABETES ANNUAL FOOT EXAM 1974 DIABETES ANNUAL RETINAL EXAM 1974 DIABETES HBA1C Q 6 MONTHS 1974 DIABETES MICROALBUMIN ANNUAL SCREEN 1974 LDL CHOLESTEROL ANNUAL 1974 DTAP/TDAP/TD VACCINES (1 - Tdap) 08/03/1975 PNEUMOCOCCAL VACCINE 50+ YEARS (1 of 2 - PCV) 08/02/18 76 COLORECTAL SCREENING 2001 Colorectal Cancer Screening 2001 FIT-DNA Q 3 years 2001 FIT/FOBT Q 1 year 2001 Flex Sig/CT Colonography Q 5 years 2001 ZOSTER VACCINE (1 of 2) 2006 RSV VACCINE (60+ or ) (1 - Risk 60-74 years 1-dose series) 2016 INFLUENZA VACCINE (#1) 2023 Insurance [employer] MCR Care Teams Purchasing Administrative Assistant Relationship Specialty Start Date End Date Chauncey Curtis MD [address] [place] [address] PCP - General Family Practice 08/30/20
--- OUTSIDE RECORDS SUMMARY | 2024-08-19 10:12 | XMS_ITS | Referral Summary ---
Author Organization [facility] (formerly [facility]) at the [facility] Address [address] [place] [address] Care Team Providers Care Diplomatic Interpreter Name Role Phone Chauncey Curtis MD Primary Care Provider [phone] Allergies No known active allergies Medications aspirin 81 mg enteric coated tablet Take 81 mg by mouth daily Active insulin aspart protamine-insul in aspart 70/30 (NovoLOG 70/30) 100 unit/mL pen for injection Active sildenafiL (VIAGRA) 100 mg tablet Take 100 mg by mouth daily as needed Active metFORMIN (GLUCOPHAGE) 1,000 mg tablet Take 1,000 mg by mouth 2 (two) times a day with meals Active atorvastatin (LIPITOR) 80 mg tablet Take 80 mg by mouth daily Active HYDROcodone-kamlesh taminophen (NORCO) 7.5-325 mg per tablet Take 1 tablet by mouth every 6 (six) hours as needed Active amLODIPine (NORVASC) 5 mg tablet Take 5 mg by mouth daily Active furosemide (LASIX) 20 mg tablet Take 20 mg by mouth 2 (two) times a day Active lisinopriL (PRINIVIL,ZESTR IL) 40 mg tablet Take 40 mg by mouth daily Active dzvzr-8-hqb-epa -dpa-fish oil 1,050-1,200 mg capsule 1 capsule Active glimepiride (AMARYL) 4 mg tablet 05/11/2020 Active omega-3 fatty acids (LOVAZA) 1 gram capsule 07/20/2020 Acti ve Active Problems Problem Noted Date Diagnosed Date Venous insufficiency 07/07/2020 Diabetes 07/03/2020 Diabetic foot ulcer 07/03/2020 Hypertension 07/03/2020 Hyperlipemia 07/03/2020 Neuropathy 07/03/2020 Rheumatoid arthritis 07/03/2020 Pancreatic neoplasm 02/13/2012 Social History Tobacco Use Types Packs/Day Years Used Date Smoking Tobacco: Heavy Smoker Cigarettes Personal Safety Answer Date Recorded Getting School Help Needed Not on file 05/11 Sex and Gender Information Value Date Recorded Sex Assigned at Not on file 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 Gender Identity Not on file Sexual Orientation Not on file Last Filed Vital Signs Vital Sign Reading Time Taken Comments Blood Pressure 151/75 07/20/2020 2:12 PM CDT Pulse 70 07/20/2020 2:12 PM CDT Temperature - - Respiratory Rate - - Oxygen Saturation - - Inhaled Oxygen Concentration - - Weight 99.8 kg (220 lb) 07/20/2020 2:12 PM CDT Height 175.3 cm (5' 9) 07/20/2020 2:12 PM CDT Body Mass Index 32.49 07/20/2020 2:12 PM CDT Plan of Treatment Not on file Insurance [address] [place] [address] [employer] CHOICE MEDICARE PPO Care Teams Diplomatic Interpreter Relationship Specialty Start Date End Date Chauncey Curtis MD PCP - General Family Medicine 07/03/20
--- OUTSIDE RECORDS SUMMARY | 2024-08-19 10:12 | XMS_ITS | Clinical Summary ---
Author Organization [facility] Address [address] [place] [address] Care Team Providers Care Human Resources Consultant Name Role Phone Unavailable Primary Care Provider Unavailabl e Immunizations Immunization Administration Dates Next Due Covid-19, Mrna, Lnp-s, Pf, 30 Mcg/0.3 Ml Dose (P fizer) 12/15/2020 Social History Tobacco Use Types Packs/Day Years Used Date Smoking Tobacco: Never Assessed Sex and Gender Information Value Date Recorded Sex Assigned at Not on file Legal Sex Male 3:15 PM CDT Gender Identity Not on file Sexual Orientation Not on file Plan of Treatment Health Maintenance Due Date Last Done Comments Hepatitis C Virus (HCV) Screening 1955 TdaP Immunization 1955 Colonoscopy 2001 Colorectal Cancer Screening 2001 Cologuard 2006 Immunochemical Fecal Occult Blood 2006 Pneumococcal Immunization (5 0+ years) (1 of 1 - PCV) 2006 Zoster Immunization (1 of 2) 2006 SARS-COV-2 Immunization (4 - season) 2023 12/15/2020, 06/06/2020, 05/16/2020 Influenza Immunization (Seas on Ended) 2024 01/30/2020, 02/03/2017 Respiratory Syncytial Virus (RSV) Immunization (Adult) (1 - 1-dose 75+ series) 08/03/2031 Hepatitis B Immunization Aged Out No longer eligible based on patient's age to complete this topic Human Papillomavirus (HPV) Immunization Aged Out No longer eligible b ased on patient's age to complete this topic Meningococcal Immunization (ACWY) Aged Out No longer eligible b ased on patient's age to complete this topic Rotavirus Immunization Aged Out No lo nger eligible based on patient's age to complete this topic
--- OUTSIDE RECORDS SUMMARY | 2024-08-19 10:12 | XMS_ITS | Clinical Summary ---
Author Organization [facility] at the [facility] Address [address] [place] [address] Care Team Providers Care Endocrinology Specialist Name Role Phone Chauncey Curtis MD Primary Care Provider [phone] Allergies No known active allergies Medications aspirin [...] Take 40 mg by mouth daily Active szfsa-1-xye-epa -dpa-fish oil 1,050-1,200 mg capsule 1 capsule Active glimepiride (AMARYL) 4 mg tablet 05/11/2020 Active omega-3 fatty acids (LOVAZA) 1 gram capsule 07/20/2020 Acti ve Active Problems Problem Noted Date Diagnosed Date Venous insufficiency 07/07/2020 Diabetes 07/03/2020 Diabetic foot ulcer 07/03/2020 Hypertension 07/03/2020 Hyperlipemia 07/03/2020 Neuropathy 07/03/2020 Rheumatoid arthritis 07/03/2020 Pancreatic neoplasm 02/13/2012 Surgical History Surgery Date Site/Laterality Comments KNEE SURGERY Left Medical History Medical History Date Comments Neuropathy HTN (hypertension) DM (diabetes mellitus) (HCC) Hyperlipidemia Diabetic foot ulcer (HCC) Rheumatoid aortitis Family History Medical History Relation Name Comments Diabetes Father Relation Name Status Comments Father Social History Tobacco Use Types Packs/Day Years Used Date Smoking Tobacco: Heavy Smoker Cigarettes Personal Safety Answer Date Recorded Getting School Help Needed Not on file 05/11 Sex and Gender Information Value Date Recorded Sex Assigned at Not on file 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
--- OUTSIDE RECORDS SUMMARY | 2024-08-19 10:12 | XMS_ITS | CONTINUITY OF CARE DOCUMENT ---
Author Name alexandreaemilieed Address Unknown Organization [facility] Address [address] [place] [address] Phone [phone] Care Team Providers Care Machine Group Leader Name Role Phone Suraj King MD Unavailable [phone] Suraj King MD Unavailable [phone] INSURANCE PROVIDERS Payer name Policy type / Coverage type Jamel red alliance party ID HEALTHCARE AND FAMILY SERVICES Medicaid 2 [id number] [facility] COMPLETE CARE [id number] (PPO C-SNP) Commercial insurance company [id number]
--- OUTSIDE RECORDS SUMMARY | 2024-08-19 10:12 | XMS_ITS | Continuity of Care Document ---
Author Organization [facility] Address [address] [place] [address] Phone Care Team Providers Care Belting Inspector Name Role Phone Administrative, Provider Unavailable Unavail able Procedures Procedure Date Medical Record Copy Medical Record Copy Per Page Affidavit Advance Directives Directive Yes / No Effective Date File Name No Information Encounters Encounter Description Practice Location Reason(s) For Visit Diagnoses Date Provider Providers Copied on Encounter [facility], [address] [place], [place] [address], [place], [place], [id number], [place] tel:[phone] [facility] No Information 3200 7 Administrative Provider. [address] [place] [address], [place] [address], [place], [place], [id number], . tel:[phone] Family History Family Member Type Diagnosis Age At Onset No Information Payers Payer name Insurance type Covered alliance party ID Authoriza tion(s) No Information Social History Type Description Quantity Date Captured Comments Sex Female Smoking Status No Information Chief Complaint And Reason For Visit No Information Reason For Referral Reason For Referral No Information History Of Present Illness Encounter Date Complaint History Of Prese nt Illness No Information Functional Status Date Functional Assessmen t No Information Instructions Date Instruction Additional Infor mation No Information Assessments Type Assessment Date No Information Patient Care Teams Name Effective Dates (start - stop) Status Members No Information
[2024-08-19 10:13] LABS: Hematocrit 45.6 % (42.0-52.0); Hemoglobin 15.5 g/dL (14.0-18.0); Mean Corpuscular Hemoglobin 28.7 pg (26-34); Mean Corpuscular Volume 84.3 fl (80-100); Mean Platelet Volume 9.7 fl (7.4-10.4); Platelet Count Result 193 k/mm3 (150-375); Red Blood Count 5.41 M/mm3 (4.6-6.20); Red Cell Distribution Width 13.8 % (11.5-14.5); White Blood Count 9.3 K/mm3 (4.5-10.0)
[2024-08-19 10:33] LABS: Albumin Level 3.8 g/dL (3.5-5.1); Anion Gap 6 mmol/L (4-12); Blood Urea Nitrogen 18 mg/dL (9-20); Calcium 9.3 mg/dL (8.4-10.2); Carbon Dioxide 33 mmol/L (22-30); Chloride 98 mmol/L (98-107); Estimated Glomerular Filt Rate > 60; Glucose 220 mg/dL (65-110); Phosphorus 3.3 mg/dL (2.5-4.5); Potassium 4.5 mmol/L (3.4-5.0); Sodium 137 mmol/L (137-145); Uric Acid 6.1 mg/dL (3.5-8.5)
--- OUTSIDE RECORDS SUMMARY | 2024-08-19 10:35 | XMS_ITS | Clinical Summary ---
Author Organization [facility] [facility] Address [address] [place] [address] Care Team Providers Care Structural Steel Fitter Name Role Phone Chauncey Curtis MD Primary Care Provider [phone] Allergies No known active allergies Medications amLODIPine [...] t be different from the original. Vascular Mechanical Cad Drafter - Dr. Sacha Castillo MD, [facility], [facility] - [address] [facility] [address] Sams - DPM Problem Noted [...] series) 2016 INFLUENZA VACCINE (#1) 2023 Insurance [employer] MCR Care Teams Structural Steel Fitter Relationship Specialty Start Date End Date Chauncey Curtis MD [address] [place] [address] PCP - General Family Practice 08/30/20
--- OUTSIDE RECORDS SUMMARY | 2024-08-19 10:35 | XMS_ITS | CONTINUITY OF CARE DOCUMENT ---
Author Name alexandreaemilieed Address Unknown Organization [facility] Address [address] [place] [address] Phone [phone] Care Team Providers Care Agile Developer Name Role Phone Suraj King MD Unavailable [phone] Suraj King MD Unavailable [phone] INSURANCE PROVIDERS Payer name Policy type / Coverage type Jamel red democrat ID HEALTHCARE AND FAMILY SERVICES Medicaid 2 [id number] [facility] COMPLETE CARE ST-[id number] (PPO C-SNP) Commercial insurance company [id number]
--- OUTSIDE RECORDS SUMMARY | 2024-08-19 10:35 | XMS_ITS | Clinical Summary ---
Author Organization [facility] Address [address] [place] [address] Care Team Providers Care Managing Partner Name Role Phone Unavailable Primary Care Provider [...]
--- OUTSIDE RECORDS SUMMARY | 2024-08-19 10:35 | XMS_ITS | Referral Summary ---
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
--- OUTSIDE RECORDS SUMMARY | 2024-08-19 10:35 | XMS_ITS | Continuity of Care Document ---
Author Organization [facility] Address [address] [place] [address] Phone Care Team Providers Care 911 Dispatcher Name Role Phone Administrative, Provider Unavailable Unavail able Procedures Procedure Date Medical Record Copy Medical Record Copy Per Page Affidavit Advance Directives Directive Yes / No Effective Date File Name No Information Encounters Encounter Description Practice Location Reason(s) For Visit Diagnoses Date Provider Providers Copied on Encounter [facility], [address] [place], [place] [address], [place], [place], [id number], [place] tel:[phone] [facility] No Information 3200 7 Administrative Provider. [address] [place] [address], [place] [address], [place], [place], [id number], . tel:[phone] Family History Family Member Type Diagnosis Age At Onset No Information Payers Payer name Insurance type Covered green party ID Authoriza tion(s) No Information Social [...]
--- OUTSIDE RECORDS SUMMARY | 2024-08-19 10:35 | XMS_ITS | Clinical Summary ---
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
[2024-08-19 10:41] LABS: Parathyroid Intact 22.8 pg/mL (14.5-75.2)
[2024-08-19 11:16] LABS: Total Protein Urine Random > 600 mg/dL; Ur Ttl Prot Creatinine Ratio > 4.84 mg/mg (0-0.20)
[2024-08-19 23:39] LABS: Vitamin D 25 Hydroxy < 12.8 ng/mL
== END 2024-08-19 09:51 | disposition home or self-care (01) ==
PROVIDERS: PCP Nurse Practitioner Family; Visit Provider Internal Medicine Nephrology
DX: N20.0 Calculus of kidney (principal); R80.9 Proteinuria, unspecified; E11.29 Type 2 diabetes mellitus with other diabetic kidney complication; E55.9 Vitamin D deficiency, unspecified
CPT/HCPCS: 36415; 80069; 82306; 82570; 83970; 84156; 84550; 85027

== ENCOUNTER 2025-01-13 08:39 | Outpatient (CLI) | payer MEDICARE, MEDICAID, SELFPAY ==
--- OUTSIDE RECORDS SUMMARY | 2025-01-13 08:58 | XMS_ITS | Clinical Summary ---
Author Organization [facility] Address [address] [place] [address] Care Team Providers Care Cement Crusher Operator Name Role Phone Unavailable Primary Care Provider [...] Virus (HCV) Screening 1955 TdaP Immunization 1956 Cologuard 2001 Colonoscopy 2001 Colorectal Cancer Screening 2001 Immunochemical Fecal Occult Blood 2001 Pneumococcal Immunization (5 0+ years) (1 of 1 - PCV) 2006 Zoster Immunization (1 of 2) 2006 Influenza Immunization (#1) 11/15/202401/15, 02/03/2017 SARS-COV-2 Immunization ( season) 2024 12/15/2020, 06/06/2020, 05/16/2020 Respiratory Syncytial Virus (RSV) Immunization (Adult) (1 [...]
--- OUTSIDE RECORDS SUMMARY | 2025-01-13 08:58 | XMS_ITS | Clinical Summary ---
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
--- OUTSIDE RECORDS SUMMARY | 2025-01-13 08:58 | XMS_ITS | Clinical Summary ---
Author Organization [facility] [facility] Address [address] [place] [address] Care Team Providers Care Meat Cutter Name Role Phone Chauncey Curtis MD Primary Care Provider [phone] Allergies No known active allergies Medications amLODIPine [...] t be different from the original. Vascular Risk Advisor - Dr. Sacha Castillo MD, [facility], [facility] - [address] [facility] [address] Sams - DPM Problem Noted Date [...] Flex Sig/CT Colonography Q 5 years 2001 RSV VACCINE (60+ or ) (1 - Risk 50-74 years 1-dose series) 2006 ZOSTER VACCINE (1 of 2) 2006 INFLUENZA VACCINE (#1) [address] [place], [place] [id number] MCR Care Teams Meat Cutter Relationship Specialty Start Date End Date Chauncey Curtis MD [address] [place] [address] PCP - General Family Practice 08/30/20
[2025-01-13 09:26] LABS: Hematocrit 44.8 % (42.0-52.0); Hemoglobin 14.5 g/dL (14.0-18.0); Mean Corpuscular HGB Conc 32.4 g/dl (32-36); Mean Corpuscular Hemoglobin 28.1 pg (26-34); Mean Corpuscular Volume 86.8 fl (80-100); Platelet Count Result 174 k/mm3 (150-375); Red Blood Count 5.16 M/mm3 (4.6-6.20); White Blood Count 7.8 K/mm3 (4.5-10.0)
[2025-01-13 09:37] LABS: Hemoglobin A1C 6.3 % (<5.7)
[2025-01-13 09:46] LABS: Alanine Aminotransferase 24 U/L (6-50); Albumin Level 3.7 g/dL (3.5-5.1); Alkaline Phosphatase 76 U/L (38-126); Amylase 46 U/L (30-110); Anion Gap 9 mmol/L (4-12); Aspartate Amino Transferase 28 U/L (17-59); Bilirubin,Total 0.5 mg/dL (0.2-1.3); Blood Urea Nitrogen 21 mg/dL (9-20); Calcium 9.1 mg/dL (8.4-10.2); Carbon Dioxide 32 mmol/L (22-30); Chloride 98 mmol/L (98-107); Estimated Glomerular Filt Rate > 60; Glucose 219 mg/dL (65-110); Lipase 37 U/L (23-300); Potassium 3.8 mmol/L (3.4-5.0); Sodium 139 mmol/L (137-145); Total Protein 6.3 g/dL (6.3-8.2)
[2025-01-13 10:04] LABS: Total Protein Urine Random 159 mg/dL; Ur Ttl Prot Creatinine Ratio 3.93 mg/mg (0-0.20)
[2025-01-13 10:23] LABS: Prostate Specific Antigen 0.8 ng/mL (< OR = 4.0)
[2025-01-14 07:09] LABS: GGT 33 IU/L (0-65)
== END 2025-01-13 08:40 | disposition home or self-care (01) ==
PROVIDERS: PCP Family Medicine; Visit Provider Internal Medicine Nephrology
DX: Z12.5 Encounter for screening for malignant neoplasm of prostate (principal); I10 Essential (primary) hypertension; E11.29 Type 2 diabetes mellitus with other diabetic kidney complication; E55.9 Vitamin D deficiency, unspecified; R80.9 Proteinuria, unspecified; K86.1 Other chronic pancreatitis
CPT/HCPCS: 36415; 80053; 82150; 82306; 82570; 82977; 83036; 83690; 84100; 84153; 84156; 85027; G0103